=== PATIENT | male | born 1950 | race Caucasian/White ===

== ENCOUNTER 2025-04-19 02:09 | Emergency (ER) | payer MEDICARE, OTHER, SELFPAY ==
[2025-04-19 02:10] VITALS: BP 141/73
[2025-04-19 02:20] VITALS: BMI 20.1
--- NOTE | 2025-04-19 02:27 | ED.GENMED ---
History of Present Illness
General
Chief Complaint: Catheter/Tube Problem
Source: patient and records
Exam Limitations: dementia
Time Seen by Provider: 04/19/25 02:17
History of Present Illness
History of Present Illness:
This patient is a 74-year-old male who reportedly pulled his Marcial catheter out prompting his visit here. We attempted to call his facility for further information, unable to reach them after several attempts. History limited given patient's
history of dementia.
Past History
Past History
ED Past Medical History: CAD, GERD, HTN, Hypercholesterolemia and NIDDM
Social History
Tobacco: Other (uanble to assess )
Alcohol: Other (unable to assess given dementia)
Phy Exam
Physical Exam
Physical Exam:
GENERAL: Alert , in no apparent distress
EYE: pupils equal and reactive
NECK: Supple, no significant adenopathy.
ENT: o/p clr, mmm.
CARDIAC: Regular rate and rhythm .
LUNGS: Clear breath sounds bilaterally, no acute respiratory distress, no wheezes/rales/rhonchi
ABDOMEN: Soft, without focal tenderness, no r/g
NEUROLOGICAL: pleasant, confused, speech clear, maee
SKIN: Warm and dry, skin intact.
MUSCULOSKELETAL: No edema, well perfused.
PSYCH: Normal and appropriate interaction.
: nl ext genitale exam, no bleeding or swelling
Course
Vital Signs
Initial and Last Documented VS:
Initial Vital Signs
Temp Pulse Resp BP Pulse Ox
98.4 F 70 16 141/73 100
04/19/25 02:10 04/19/25 02:10 04/19/25 02:10 04/19/25 02:10 04/19/25 02:10
Last Documented Vital Signs
Temp Pulse Resp BP Pulse Ox
98.4 F 66 17 126/73 99
04/19/25 02:10 04/19/25 04:05 04/19/25 04:05 04/19/25 04:00 04/19/25 04:01
*Pulse Oximetry
SaO2: 100
Oxygen Mode of Delivery: Room air
Patient hypoxic: no
*Critical Care Note
Total Time (30-74mins, 75-104mins- exclusive of procedures): Not Applicable
Update Note
Update Note:
Patient presents to the Emergency Department with reported removed Foley
Number and Complexity of Problems Addressed at the Encounter
� Chronic conditions affecting care:
� Acute Exacerbation and/or Progression of Chronic Illness:
� Differential Diagnosis includes:but not limited to urinary retention, urethral trauma, etc.
Amount and/or Complexity of Data to be Reviewed and Analyzed
� I performed an independent evaluation of and my interpretation is:
EKG:
CT:
Xrays:
Laboratory Studies:
Other:
� Review of other/old records reveals:
� Clinical information was obtained by an independent historian:
� Prescriptions/Medications Considered but not given:
� Further testing considered but not performed:
Risk of Complications and/or Morbidity or Mortality of Patient Management
� Social determinants of health affecting care:
� Discussion with other providers (PCP, Hospitalists, Consultants, etc):
� Escalation of care including admission/observation vs risk of discharge considered: Marcial catheter placed by RN without difficulty, return of yellow urine, patient comfortable. Will be transported back to his living facility.
ED Attending Note
-
Portions of this chart may have been created with voice recognition software.� Occasional wrong word or��sound alike� substitutions may have occurred due to the inherent limitations of voice recognition software.
Discharge Plan
Departure
Patient Disposition: [facility]/SNF
Date of Disposition: 04/19/25
Time of Disposition: 03:31
Discharge Problem:
Encounter for Marcial catheter replacement
Instructions: How to Care for Your Marcial Catheter, Male, BLOOD PRESSURE
Prescriptions:
No Action
carvedilol 6.25 MG tablet
6.25 mg PO BID
aspirin 81 MG tablet,chewable
81 mg PO DAILY Qty: 1 0RF
coenzyme Q10 [Co Q-10] 200 MG capsule
200 mg PO DAILY
donepezil 5 mg Tablet
5 mg PO DAILY
melatonin 3 mg Tablet
3 mg PO HS
tamsulosin 0.4 mg Capsule
0.4 mg PO QPM
buspirone 10 mg Tablet
10 mg PO BID
hydroxyzine HCl 25 mg Tablet
25 mg PO Q6H PRN (Reason: anxiety)
pravastatin 20 mg Tablet
20 mg PO DAILY
finasteride 5 mg Tablet
5 mg PO DAILY
alum-mag hydroxide-simeth [Mi-Acid] 400-400-40 mg/5 mL Suspension
30 ml PO Q6H PRN (Reason: indigestion)
insulin lispro [Humalog KwikPen Insulin] 100 unit/mL Insulin Pen
6 unit SC TID
insulin glargine [Lantus Solostar U-100 Insulin] 100 unit/mL (3 mL) Insulin Pen
20 unit SC HS
Therems-M
1 tab PO DAILY
acetaminophen 325 MG tablet
650 mg PO Q6HPRN PRN (Reason: pain/fever/headache)
Referrals:
Michael Betancourt MD [Family Provider, Family Practice]
Activity Restrictions/Additional Instructions:
IF YOU DEVELOP BLEEDING, FEVER, PAIN, OR OTHER WORRISOME SIGNS, PLEASE RETURN TO THE ER IMMEDIATELY!
Interventions
Interventions:
*Risk Screen - Suicide Last Done: 04/19/25 02:10
*General Assessment Last Done: 04/19/25 02:10
*Neglect/Abuse Screening Last Done: 04/19/25 02:10
*ED- Fall Risk Assessment Last Done: 04/19/25 02:27
*ED COVID-19 Vaccine History Last Done: 04/19/25 02:27
*ED Influenza Vaccine History Last Done: 04/19/25 02:27
*Nursing Disposition Last Done: 04/19/25 04:01
VS-Dzzhik-Nheswxromx Assessment Last Done: 04/19/25 03:16
ED-Male Genitourinary Assessment Last Done: 04/19/25 03:16
Discharge Date and Time
Discharge Date/Time: 04/19/25 04:22
Print Language: NIGERIEN
[2025-04-19 03:00] VITALS: BP 129/78
[2025-04-19 04:00] VITALS: BP 126/73
== END 2025-04-19 04:22 ==
LOC: EMR 02:09
PROVIDERS: EMERGENCY PHYSICIAN Emergency Medicine; FAMILY PHYSICIAN Family Medicine
DX: Z46.6 Encounter for fitting and adjustment of urinary device (principal); E11.9 Type 2 diabetes mellitus without complications; E78.00 Pure hypercholesterolemia, unspecified; F03.90 Unspecified dementia, unspecified severity, without behavioral disturbance, psychotic disturbance, mood disturbance, and anxiety; I10 Essential (primary) hypertension; I25.10 Atherosclerotic heart disease of native coronary artery without angina pectoris
CPT/HCPCS: 51702; 99283

== ENCOUNTER 2025-04-20 00:56 | Emergency (ER) | payer MEDICARE, OTHER, SELFPAY ==
[2025-04-20 00:58] VITALS: BP 125/71
--- NOTE | 2025-04-20 01:13 | ED.GENMED ---
History of Present Illness
General
Chief Complaint: Catheter/Tube Problem
Time Seen by Provider: 04/20/25 01:03
History of Present Illness
History of Present Illness:
74-year-old male with history of dementia returns to the emergency department due to a Marcial catheter issue. He was seen here last night due to Marcial catheter removal, Marcial was replaced without issue. Apparently nursing staff could not find his
drainage bag and thus called EMS to take him to the hospital. On arrival to EMS there was apparently urine soaking the patient's room. He has no organic complaints
Past History
Past History
ED Past Medical History: CAD, GERD, HTN, Hypercholesterolemia and NIDDM
Social History
Tobacco: Other (uanble to assess )
Alcohol: Other (unable to assess given dementia)
Review of Systems
Review of Systems
Allergies reviewed?: Yes
All Other Systems: ROS reviewed and negative except as documented in HPI and ROS
Phy Exam
Physical Exam
Physical Exam:
GEN: Well appearing, NAD, WDWN
HEENT: Oral mucosa moist, no scleral icterus
Cardiac: Regular rate
Lung: No respiratory distress, no tachypnea
: Marcial catheter well-seated, no blood at the urethral meatus
MSK: No gross deformity or injuries
Skin: Good color, no pallor or jaundice, no rashes
Neuro: Alert, baseline mentation, moves all extremities freely
Psych: Calm, cooperative
Course
Vital Signs
Initial and Last Documented VS:
Initial Vital Signs
Temp Pulse Resp BP Pulse Ox
97.6 F 68 16 125/71 100
04/20/25 00:58 04/20/25 00:58 04/20/25 00:58 04/20/25 00:58 04/20/25 00:58
Last Documented Vital Signs
Temp Pulse Resp BP Pulse Ox
97.6 F 68 16 125/71 100
04/20/25 00:58 04/20/25 00:58 04/20/25 00:58 04/20/25 00:58 04/20/25 01:14
MDM/Problems Addressed
MDM/Problems Addressed:
Drainage bag replaced
*Pulse Oximetry
SaO2: 100
Oxygen Mode of Delivery: Room air
Patient hypoxic: no
*Critical Care Note
Total Time (30-74mins, 75-104mins- exclusive of procedures): Not Applicable
ED Attending Note
-
Portions of this chart may have been created with voice recognition software.� Occasional wrong word or��sound alike� substitutions may have occurred due to the inherent limitations of voice recognition software.
Discharge Plan
Departure
Patient Disposition: Home (Routine Discharge)
Date of Disposition: 04/20/25
Time of Disposition: 01:14
Patient with high blood pressure during this ER visit?: No
Discharge Problem:
Malfunction of Marcial catheter
Prescriptions:
No Action
carvedilol 6.25 MG tablet
6.25 mg PO BID
aspirin 81 MG tablet,chewable
81 mg PO DAILY Qty: 1 0RF
coenzyme Q10 [Co Q-10] 200 MG capsule
200 mg PO DAILY
donepezil 5 mg Tablet
5 mg PO DAILY
melatonin 3 mg Tablet
3 mg PO HS
tamsulosin 0.4 mg Capsule
0.4 mg PO QPM
buspirone 10 mg Tablet
10 mg PO BID
hydroxyzine HCl 25 mg Tablet
25 mg PO Q6H PRN (Reason: anxiety)
pravastatin 20 mg Tablet
20 mg PO DAILY
finasteride 5 mg Tablet
5 mg PO DAILY
alum-mag hydroxide-simeth [Mi-Acid] 400-400-40 mg/5 mL Suspension
30 ml PO Q6H PRN (Reason: indigestion)
insulin lispro [Humalog KwikPen Insulin] 100 unit/mL Insulin Pen
6 unit SC TID
insulin glargine [Lantus Solostar U-100 Insulin] 100 unit/mL (3 mL) Insulin Pen
20 unit SC HS
Therems-M
1 tab PO DAILY
acetaminophen 325 MG tablet
650 mg PO Q6HPRN PRN (Reason: pain/fever/headache)
Interventions
Interventions:
*Risk Screen - Suicide Last Done: 04/20/25 01:03
*General Assessment Last Done: 04/20/25 01:03
*Neglect/Abuse Screening Last Done: 04/20/25 01:03
*ED- Fall Risk Assessment Last Done: 04/20/25 01:03
*ED COVID-19 Vaccine History Last Done: 04/20/25 01:03
*ED Influenza Vaccine History Last Done: 04/20/25 01:03
XK-Tsyovn-Ddncahmyvy Assessment Last Done: 04/20/25 01:07
ED-Male Genitourinary Assessment Last Done: 04/20/25 01:07
Discharge Date and Time
Print Language: [place]ET[place]
[2025-04-20 03:01] VITALS: BP 95/60
== END 2025-04-20 03:29 | disposition home or self-care (01) ==
LOC: EMR 00:56
PROVIDERS: EMERGENCY PHYSICIAN Student in an Organized Health Care Education/Training Program
DX: T83.091A Other mechanical complication of indwelling urethral catheter, initial encounter (principal); Y84.6 Urinary catheterization as the cause of abnormal reaction of the patient, or of later complication, without mention of misadventure at the time of the procedure; E78.00 Pure hypercholesterolemia, unspecified; I10 Essential (primary) hypertension; E11.9 Type 2 diabetes mellitus without complications; I25.10 Atherosclerotic heart disease of native coronary artery without angina pectoris; F03.90 Unspecified dementia, unspecified severity, without behavioral disturbance, psychotic disturbance, mood disturbance, and anxiety
CPT/HCPCS: 99282

== ENCOUNTER 2025-05-16 12:23 | Inpatient (IN) | payer MEDICARE, OTHER, SELFPAY ==
[2025-05-16] VITALS (49 sets, daily range): BP systolic 66–123; BP diastolic 36–80; BMI 21.5
--- NOTE | 2025-05-16 08:50 | ED.GENMED ---
History of Present Illness
<ORALIA Connor - Last Filed: 05/16/25 14:28>
General
Chief Complaint: Blood Pressure Problem
Source: ambulance crew
Exam Limitations: dementia
Time Seen by Provider: 05/16/25 08:46
Nursing documentation reviewed up to this point in time: agreed with
History of Present Illness
History of Present Illness:
Patient is a 74-year-old male with PMH of dementia , CAD, htn, hyperlipidemia , [place] NSTEMI from [facility] sent for evaluation. Patient was noted to have hematuria in his Moore catheter. He has a history of dementia unable to give history. Medics
report patient's blood pressure was 80s over 50s.
Nurse from [facility] reports around 5: 30 am pt was noted to be lethargic, low BP 88/49 and blood in his moore bag.
Nurse reports pt normally walks on his own and would not get up out of bed this am.
Sister at bedside reports patient has a Moore because of urinary retention. Pt is followed by Urology here and is scheduled for a 'scraping of his prostate June 05.'
Past History
<ORALIA Connor - Last Filed: 05/16/25 14:28>
Past History
ED Past Medical History: CAD, GERD, HTN, Hypercholesterolemia and NIDDM
Social History
Tobacco: Other (uanble to assess )
Alcohol: Other (unable to assess given dementia)
Phy Exam
<ORALIA Connor - Last Filed: 05/16/25 14:28>
General Physical Exam
General Presentation: no apparent distress
General age: appears stated age
General Skin: warm and dry
General Habitus: elderly
General Mental: confused
General Hydration: dry mucous membranes
Cardiovascular Exam
Cardiovascular Exam: regular rate/rhythm, no murmur and normal peripheral pulses
Pulmonary Exam
Pulmonary Exam: lungs clear and no respiratory distress
Genitourinary Exam Male
Exam Male: other (moore catheter in place with gross hematuria no clots )
Neurological Exam
Neurological Exam: other (sleepy)
Musculoskeletal Exam
Musculoskeletal Exam: full ROM
Skin Exam
Skin Exam: normal color and warm/dry
Sepsis
<ORALIA Connor - Last Filed: 05/16/25 14:28>
Sepsis Screening
Sepsis Assessment: Sepsis
Sepsis Screen
Sepsis Screen: Sepsis
Date: 05/16/25
Time: 14:28
Course
<ORALIA Connor - Last Filed: 05/16/25 14:28>
Orders/Labs/Results
Orders:
Orders
05/16/25 Breakfast
NPO
Allow oral meds: Yes
Allow clear liquids: Sips of Clears
05/16/25 08:57
Electrocardiogram (*1) Urgent
Reason for Study: Other
Other Reason for Exam: sepsis
Cardiac Monitoring- Treatment ONCE
EKG- Treatment ONCE
IV Insert/Care/Rem.- Treatment PRN
05/16/25 09:00
COVID-19 Antigen Urgent
Source: Nasal Swab
Complete Blood Count/With Diff Urgent
Comprehensive Metabolic Panel Urgent
Lactic Acid Q4H
Comment: CANCEL 2nd LACTIC ACID IF 1st LACTIC ACID IS LESS THAN 2
Manual Differential Urgent
Blood Culture Q30M
TEREZA Source: Blood/Venous
Specimen Description:
Influenza A+B Rapid Molecular Urgent
TEREZA Source: Nasal Swab
Specimen Description:
05/16/25 09:01
0.9% Sodium Chloride 1000 ml [Nss] 2,000 ml IV NOW STA
Acetaminophen [Tylenol/Feverall] 650 mg RECTAL NOW STA
05/16/25 09:10
Chest X-ray Portable [CR Chest Portable - 1 View] Stat
Comment:
Reason For Exam: chest pain
Reason Study Needs to be Portable: Unable to Transport
05/16/25 09:12
Blood Culture Q30M
TEREZA Source: Blood/Venous
Specimen Description:
05/16/25 09:26
Moore Placement- Treatment ONCE
Reason for insertion: Chronic Moore on Admit
05/16/25 09:54
Urinalysis Reflex To Culture Urgent
Date Specimen was Collected: 05/16/25
Time Specimen was Collected: 09:53
Comment: from [facility] moore
Urine Microscopic Reflex Cult Urgent
Urine Culture Urgent
TEREZA Source: U
Specimen Description:
Date Specimen was Collected: 05/16/25
Time Specimen was Collected: 09:53
05/16/25 09:57
0.9% Sodium Chloride 500 ml [Nss] 500 ml IV BOLUS
Piperacillin/Tazo 3.375 Gram [Zosyn] 3.375 gram in 50 ml IV NOW
05/16/25 10:00
NORepinephrine 4 MG/250 ML [Levophed] 4 mg in 250 ml IV PER PROTOCOL
Initial dose in mcg/min, then titrate:: 5
Titrate to keep:: MAP > 65 mmHg
Titrate by mcg/min:: 1-2 mcg/min
Frequency of titrations (minutes):: 5
Maximum dose in ICU in mcg/min:: 30
Maximum dose in IMU in mcg/min:: 8
Maximum dose in IVU in mcg/min:: 4
Begin to taper infusion when:: Remained at goal for 4hrs
Taper by mcg/min:: 1-2 mcg/min
Frequency of taper (minutes) if patient maintains goal:: 30
Taper to off?: Yes
If infusion off & no longer maintaining goal:: Contact Provider
05/16/25 10:01
Dextrose 50%-Water [Dextrose 50% Syringe] 25 grams IV NOW STA
05/16/25 10:02
Dextrose 50%-Water [Dextrose 50% Syringe] 25 grams .ROUTE .STK-MED ONE
05/16/25 11:00
Dextrose 5%/0.9%Sodchl 500 ml [D5/0.9% Sodium Chloride] 500 ml IV 125 mls/hr
05/16/25 12:08
Admit/Transfer Patient As Directed
Co-Sign Provider:
Level of Care: Inpatient admission
Assign to:: ICU
Physician / Group: sugeya/medicine
Diagnosis: septic shock
Reason for Hospitalization: septic shock
Expected length of stay greater than two midnights?: Yes
ELOS- Estimated Length of Stay in days: 4
I certify the patient meets the requirements for IP care: Yes
PRN Pain Medication Management As Directed
May give lesser potent ordered pain med per pt: Yes
preference::
Protocol:: Medication orders for pain may be administered in a
manner that supports deferring to patient preference
when the pt is:
- Requesting an ordered lesser potent pain medication.
Least to most potent pain medications are defined
as: acetaminophen < NSAID < tramadol < opioids
(morphine, oxycodone, hydromorphone).
- Requesting a lesser dose of the same medication IF
ORDERED.
- Requesting a less intrusive route of administration
if both routes are prescribed by the provider (PO <
IV).
05/16/25 12:09
Code Status As Directed
Resuscitation Status: Full Code
05/16/25 13:00
Lactic Acid Q4H
Comment: CANCEL 2nd LACTIC ACID IF 1st LACTIC ACID IS LESS THAN 2
05/16/25 13:29
Dextrose 5%/Lactringers 1000ML [D5lr] 1,000 ml IV 75 mls/hr
05/16/25 14:25
Lactic Acid Q4H
Comment: repeat q4 hours x 4 or until less than 2 mmol/L
Lactated Ringers [Lr] 1,000 ml IV BOLUS
Piperacillin/Tazo 4.5 Gram [Zosyn] 4.5 gram in 100 ml IV Q6H
05/16/25 14:25
Anesthesiology Fellow Consult Routine
Consulting Provider: Cristian Cooper
Was physician already notified: Yes
Vancomycin MRSA PCR Screen Urgent
TEREZA Source: Nose
Specimen Description:
Activity As Directed
Activity Level: As Tolerated
Intake/ Output As Directed
Frequency: Per unit guidelines
Vital Signs As Directed
Frequency: Per unit guidelines
Renal & Bladder US [US Renal With Bladder] Routine
Comment:
Reason For Exam: radu, hematuria
DX Deep Vein Thrombosis Video Routine
05/16/25 16:00
Heparin 5,000 units SC Q8
05/16/25 18:25
Lactic Acid Q4H
Comment: repeat q4 hours x 4 or until less than 2 mmol/L
05/16/25 22:25
Lactic Acid Q4H
Comment: repeat q4 hours x 4 or until less than 2 mmol/L
05/17/25 06:00
Complete Blood Count/No Diff IN AM
Comprehensive Metabolic Panel IN AM
05/17/25 08:00
Aspirin Chewable [Low Strength Aspirin] 81 mg PO DAILY
05/18/25 06:00
Complete Blood Count/No Diff IN AM
Comprehensive Metabolic Panel IN AM
05/19/25 06:00
Complete Blood Count/No Diff IN AM
Comprehensive Metabolic Panel IN AM
Abnormal Lab Results
05/16/25 05/16/25 05/16/25
09:00 09:54 10:00
WBC 24.3 H 10^3/uL
(4.8-10.8)
RBC 3.47 L 10^6/uL
(4.70-6.10)
Hgb 10.1 L g/dL
(13.0-18.0)
Hct 31.2 L %
(39.0-52.0)
MCHC 32.4 L g/dL
(33.0-37.0)
Abs Neuts (Manual) 23.0 H 10^3/uL
(1.4-6.5)
Segmented Neutrophils 84 H %
(42-75)
Band Neutrophils 11 H %
(0-3)
Lymphocytes (Manual) 2 L %
(20-51)
BUN 46 H mg/dl
(9-20)
Creatinine 2.1 H mg/dL
(0.7-1.3)
Glucose 65 L mg/dl
(70-99)
Total Protein 5.9 L g/dl
(6.3-8.2)
Albumin 3.1 L g/dl
(3.5-5.0)
Ur Occult Blood Reflex 4+ A
(Negative)
Leukocyte Esterase Rfl 3+ A
(Negative)
Urine RBC >100 A /HPF
(0-2)
Urine WBC (Reflex) >100 A /HPF
(0-5)
Urine Bacteria (Reflex) Moderate A
(Negative)
Urine Albumin (Reflex) 3+ A
(Neg - Trace)
POC Glucose 41 L* mg/dl
(70-99)
05/16/25 05/16/25
10:21 11:04
WBC
RBC
Hgb
Hct
MCHC
Abs Neuts (Manual)
Segmented Neutrophils
Band Neutrophils
Lymphocytes (Manual)
BUN
Creatinine
Glucose
Total Protein
Albumin
Ur Occult Blood Reflex
Leukocyte Esterase Rfl
Urine RBC
Urine WBC (Reflex)
Urine Bacteria (Reflex)
Urine Albumin (Reflex)
POC Glucose 138 H mg/dl 139 H mg/dl
(70-99) (70-99)
05/16/25 09:00
05/16/25 09:00
Vital Signs
Initial and Last Documented VS:
Initial Vital Signs
Temp Pulse Resp BP Pulse Ox
102 F H 91 23 101/50 91
05/16/25 08:46 05/16/25 08:46 05/16/25 08:46 05/16/25 08:46 05/16/25 08:46
Last Documented Vital Signs
Temp Pulse Resp BP Pulse Ox
98.8 F 53 13 113/64 97
05/16/25 13:53 05/16/25 13:53 05/16/25 13:53 05/16/25 13:53 05/16/25 13:53
Hot Pipe Gauger consulted with Physician
Hot Pipe Gauger consulted with physician?: Yes
Name of Physician Consulted: Erwin
<Kristian Hood MD - Last Filed: 05/16/25 10:48>
Orders/Labs/Results
Orders:
Orders
05/16/25 Breakfast
NPO
Allow oral meds: Yes
Allow clear liquids: Sips of Clears
05/16/25 08:57
Electrocardiogram (*1) Urgent
Reason for Study: Other
Other Reason for Exam: sepsis
Cardiac Monitoring- Treatment ONCE
EKG- Treatment ONCE
IV Insert/Care/Rem.- Treatment PRN
05/16/25 09:00
COVID-19 Antigen Urgent
Source: Nasal Swab
Complete Blood Count/With Diff Urgent
Comprehensive Metabolic Panel Urgent
Lactic Acid Q4H
Comment: CANCEL 2nd LACTIC ACID IF 1st LACTIC ACID IS LESS THAN 2
Manual Differential Urgent
Blood Culture Q30M
TEREZA Source: Blood/Venous
Specimen Description:
Influenza A+B Rapid Molecular Urgent
TEREZA Source: Nasal Swab
Specimen Description:
05/16/25 09:01
0.9% Sodium Chloride 1000 ml [Nss] 2,000 ml IV NOW STA
Acetaminophen [Tylenol/Feverall] 650 mg RECTAL NOW STA
05/16/25 09:10
Chest X-ray Portable [CR Chest Portable - 1 View] Stat
Comment:
Reason For Exam: chest pain
Reason Study Needs to be Portable: Unable to Transport
05/16/25 09:12
Blood Culture Q30M
TEREZA Source: Blood/Venous
Specimen Description:
05/16/25 09:26
Moore Placement- Treatment ONCE
Reason for insertion: Chronic Moore on Admit
05/16/25 09:54
Urinalysis Reflex To Culture Urgent
Date Specimen was Collected: 05/16/25
Time Specimen was Collected: 09:53
Comment: from [facility] moore
Urine Microscopic Reflex Cult Urgent
Urine Culture Urgent
TEREZA Source: U
Specimen Description:
Date Specimen was Collected: 05/16/25
Time Specimen was Collected: 09:53
05/16/25 09:57
0.9% Sodium Chloride 500 ml [Nss] 500 ml IV BOLUS
Piperacillin/Tazo 3.375 Gram [Zosyn] 3.375 gram in 50 ml IV NOW
05/16/25 10:00
NORepinephrine 4 MG/250 ML [Levophed] 4 mg in 250 ml IV PER PROTOCOL
Initial dose in mcg/min, then titrate:: 5
Titrate to keep:: MAP > 65 mmHg
Titrate by mcg/min:: 1-2 mcg/min
Frequency of titrations (minutes):: 5
Maximum dose in ICU in mcg/min:: 30
Maximum dose in IMU in mcg/min:: 8
Maximum dose in IVU in mcg/min:: 4
Begin to taper infusion when:: Remained at goal for 4hrs
Taper by mcg/min:: 1-2 mcg/min
Frequency of taper (minutes) if patient maintains goal:: 30
Taper to off?: Yes
If infusion off & no longer maintaining goal:: Contact Provider
05/16/25 10:01
Dextrose 50%-Water [Dextrose 50% Syringe] 25 grams IV NOW STA
05/16/25 10:02
Dextrose 50%-Water [Dextrose 50% Syringe] 25 grams .ROUTE .STK-MED ONE
05/16/25 11:00
Dextrose 5%/0.9%Sodchl 500 ml [D5/0.9% Sodium Chloride] 500 ml IV 125 mls/hr
05/16/25 12:08
Admit/Transfer Patient As Directed
Co-Sign Provider:
Level of Care: Inpatient admission
Assign to:: ICU
Physician / Group: pasricha/medicine
Diagnosis: septic shock
Reason for Hospitalization: septic shock
Expected length of stay greater than two midnights?: Yes
ELOS- Estimated Length of Stay in days: 4
I certify the patient meets the requirements for IP care: Yes
PRN Pain Medication Management As Directed
May give lesser potent ordered pain med per pt: Yes
preference::
Protocol:: Medication orders for pain may be administered in a
manner that supports deferring to patient preference
when the pt is:
- Requesting an ordered lesser potent pain medication.
Least to most potent pain medications are defined
as: acetaminophen < NSAID < tramadol < opioids
(morphine, oxycodone, hydromorphone).
- Requesting a lesser dose of the same medication IF
ORDERED.
- Requesting a less intrusive route of administration
if both routes are prescribed by the provider (PO <
IV).
05/16/25 12:09
Code Status As Directed
Resuscitation Status: Full Code
05/16/25 13:00
Lactic Acid Q4H
Comment: CANCEL 2nd LACTIC ACID IF 1st LACTIC ACID IS LESS THAN 2
05/16/25 13:29
Dextrose 5%/Lactringers 1000ML [D5lr] 1,000 ml IV 75 mls/hr
05/16/25 14:25
Lactic Acid Q4H
Comment: repeat q4 hours x 4 or until less than 2 mmol/L
Lactated Ringers [Lr] 1,000 ml IV BOLUS
Piperacillin/Tazo 4.5 Gram [Zosyn] 4.5 gram in 100 ml IV Q6H
05/16/25 14:25
Anesthesiology Fellow Consult Routine
Consulting Provider: Cristian Cooper
Was physician already notified: Yes
Vancomycin MRSA PCR Screen Urgent
TEREZA Source: Nose
Specimen Description:
Activity As Directed
Activity Level: As Tolerated
Intake/ Output As Directed
Frequency: Per unit guidelines
Vital Signs As Directed
Frequency: Per unit guidelines
Renal & Bladder US [US Renal With Bladder] Routine
Comment:
Reason For Exam: radu, hematuria
DX Deep Vein Thrombosis Video Routine
05/16/25 16:00
Heparin 5,000 units SC Q8
05/16/25 18:25
Lactic Acid Q4H
Comment: repeat q4 hours x 4 or until less than 2 mmol/L
05/16/25 22:25
Lactic Acid Q4H
Comment: repeat q4 hours x 4 or until less than 2 mmol/L
05/17/25 06:00
Complete Blood Count/No Diff IN AM
Comprehensive Metabolic Panel IN AM
05/17/25 08:00
Aspirin Chewable [Low Strength Aspirin] 81 mg PO DAILY
05/18/25 06:00
Complete Blood Count/No Diff IN AM
Comprehensive Metabolic Panel IN AM
05/19/25 06:00
Complete Blood Count/No Diff IN AM
Comprehensive Metabolic Panel IN AM
Abnormal Lab Results
05/16/25 05/16/25 05/16/25
09:00 09:54 10:00
WBC 24.3 H 10^3/uL
(4.8-10.8)
RBC 3.47 L 10^6/uL
(4.70-6.10)
Hgb 10.1 L g/dL
(13.0-18.0)
Hct 31.2 L %
(39.0-52.0)
MCHC 32.4 L g/dL
(33.0-37.0)
Abs Neuts (Manual) 23.0 H 10^3/uL
(1.4-6.5)
Segmented Neutrophils 84 H %
(42-75)
Band Neutrophils 11 H %
(0-3)
Lymphocytes (Manual) 2 L %
(20-51)
BUN 46 H mg/dl
(9-20)
Creatinine 2.1 H mg/dL
(0.7-1.3)
Glucose 65 L mg/dl
(70-99)
Total Protein 5.9 L g/dl
(6.3-8.2)
Albumin 3.1 L g/dl
(3.5-5.0)
Ur Occult Blood Reflex 4+ A
(Negative)
Leukocyte Esterase Rfl 3+ A
(Negative)
Urine RBC >100 A /HPF
(0-2)
Urine WBC (Reflex) >100 A /HPF
(0-5)
Urine Bacteria (Reflex) Moderate A
(Negative)
Urine Albumin (Reflex) 3+ A
(Neg - Trace)
POC Glucose 41 L* mg/dl
(70-99)
05/16/25 05/16/25
10:21 11:04
WBC
RBC
Hgb
Hct
MCHC
Abs Neuts (Manual)
Segmented Neutrophils
Band Neutrophils
Lymphocytes (Manual)
BUN
Creatinine
Glucose
Total Protein
Albumin
Ur Occult Blood Reflex
Leukocyte Esterase Rfl
Urine RBC
Urine WBC (Reflex)
Urine Bacteria (Reflex)
Urine Albumin (Reflex)
POC Glucose 138 H mg/dl 139 H mg/dl
(70-99) (70-99)
05/16/25 09:00
05/16/25 09:00
Vital Signs
Initial and Last Documented VS:
Initial Vital Signs
Temp Pulse Resp BP Pulse Ox
102 F H 91 23 101/50 91
05/16/25 08:46 05/16/25 08:46 05/16/25 08:46 05/16/25 08:46 05/16/25 08:46
Last Documented Vital Signs
Temp Pulse Resp BP Pulse Ox
98.8 F 53 13 113/64 97
05/16/25 13:53 05/16/25 13:53 05/16/25 13:53 05/16/25 13:53 05/16/25 13:53
<ORALIA Connor - Last Filed: 05/16/25 14:28>
MDM/Problems Addressed
Differential Diagnosis Includes:
Not limited to COVID, influenza, pneumonia, UTI, sepsis, dehydration, electrolyte abnormality
MDM/Problems Addressed:
Patient is a 74-year-old male with dementia from nursing facility. Patient was sent in for decreased mental status. Patient was lethargic this morning normally walks around and was not doing so. In addition he has a chronic Moore and is known to
pull out his Moore and nurses noted blood in his bag. He was also found to be hypertensive at the nursing facility. Patient presents confused which is baseline for patient. He presented hypotensive and febrile at 102. Patient was given rectal
Tylenol fluid bolus.
Case discussed with ED physician who evaluated patient bedside.
Patient's white count was found to be elevated at 24,000 with a normal lactic of 1.5
Patient's BUN/creatinine elevated at 46 and 2.1.
patient was given septic fluids but despite fluids blood pressure was as low as in the 60s. Levophed ordered. Patient sugar was also low in the 40s patient was given an amp of D50. After patient received 2 L of normal saline septic fluid bolus
patient was given 500 bag of D5 normal saline.
Urine is pending at this time however looks dirty.
COVID flu are negative chest x-ray negative
Chronic conditions affecting care:
Dementia ;chronic Moore
<ORALIA Connor - Last Filed: 05/16/25 14:28>
*Radiology
Radiology exam reviewed: radiology read reviewed
*Pulse Oximetry
SaO2: 91
Oxygen Mode of Delivery: Room air
Patient hypoxic: yes
*EKG
Interpreted by ED Provider?: Yes
Heart Rate: 85
Rate: normal
Rhythm: sinus
Ischemia: no ischemia
*Critical Care Note
Total Time (30-74mins, 75-104mins- exclusive of procedures): Not Applicable (See chart)
comment:
Critical care statement: A total of 40 minutes of critical care time was provided for this patient. This includes management of unstable vital signs, evaluation of the patient at bedside, reviewing the patient's pertinent medical records, discussion
with consultants, review of old EKGs and review of pertinent medical records. This time with separate from time utilized to perform the aforementioned documented procedures
ED Attending Note
<ORALIA Connor - Last Filed: 05/16/25 14:28>
-
Portions of this chart may have been created with voice recognition software.� Occasional wrong word or��sound alike� substitutions may have occurred due to the inherent limitations of voice recognition software.
<Kristian Hood MD - Last Filed: 05/16/25 10:48>
ED Attending Note
Patient seen and examined by attending physician: Yes
ED Attending Note:
Patient with history of dementia, with indwelling Moore catheter since 1 month ago due to urinary retention, presents to ED from care home secondary to mental status change, along with low blood pressure, noted by staff this morning. Upon
arrival, patient is found to be febrile. Patient is somnolent but arousable, and offers no complaints.
Physical Exam
General: mild distress, not acutely ill. febrile.
Head: nc/at. eomi
Neck: supple. no meningeal signs. normal range of motion
Heart: s1/s2 regular rate and rhythm
Lungs: no acute respiratory distress. clear bilaterally
Abdomen: normal bowel sounds. not tender. no distention
Neuro: alert and oriented x 3. no focal neurological deficits
Skin: no rash
Extremities: no edema. no calf tenderness.
Moore catheter bag with large amount of blood, without blood clots. With patient's underlying history and involuntary movements of his upper extremities, wondering whether or not bloody urine may be secondary to trauma that was caused
inadvertently. As such, Moore catheter will be replaced and urinalysis will be checked afterwards. Patient will require admission for further workup, especially in light of profound hypotension noted upon arrival with febrile state.
COVID, influenza, chest x-ray, and other studies pending.
Blood culture pending.
Hypoglycemia noted. Patient given 1 amp of D50 and started on D5 normal saline IV fluids afterwards. Repeat blood sugar stable.
Patient started on Levophed infusion secondary to persistent hypotension despite 2 L of IV fluid bolus.
History and exam concerning for severe sepsis, likely secondary to UTI. Patient will be admitted to ICU for further evaluation and treatment.
Critical care statement: A total of 40 minutes of critical care time was provided for this patient. This includes management of unstable vital signs, evaluation of the patient at bedside, reviewing the patient's pertinent medical records, review of
old EKGs and review of pertinent medical records. This time with separate from time utilized to perform the aforementioned documented procedures
Discharge Plan
Departure
Patient Disposition: Admit
Date of Disposition: 05/16/25
Time of Disposition: 10:52
Admit to: ICU
Admit to doctor: hospitaist
Presentation/result/management discussed w/ accepting MD/DO: Hospitalist
Patient with high blood pressure during this ER visit?: No
Condition: Fair
Covid-19: Not Applicable
Discharge Problem:
Fever, Sepsis, Acute UTI
Interventions
Interventions:
*General Assessment Last Done: 05/16/25 09:50
*Neglect/Abuse Screening Last Done: 05/16/25 09:50
*ED COVID-19 Vaccine History Last Done: 05/16/25 09:50
*ED Influenza Vaccine History Last Done: 05/16/25 09:50
[facility] Fall Risk Assessment Tool Last Done: 05/16/25 09:20
*Risk Screen - Suicide (C-SSRS) Last Done: 05/16/25 09:52
*Nursing Disposition Last Done: 05/16/25 13:53
ED- Cardiac Assessment Last Done: 05/16/25 09:20
ED- Neurological Assessment Last Done: 05/16/25 09:20
ED- Pulmonary Assessment Last Done: 05/16/25 09:20
Discharge Date and Time
Discharge Date/Time: 05/16/25 14:03
[2025-05-16] MEDS: NSS 2000 ML IV (09:26)
[2025-05-16] MEDS: TYLENOL/FEVERALL 650 MG RECTAL (09:28)
[2025-05-16 09:38] LABS: ALT (SGPT) 15 U/L (0-50); AST (SGOT) 26 U/L (17-59); Albumin 3.1 g/dl (3.5-5.0); Alkaline Phosphatase 58 U/L (38-126); Blood Urea Nitrogen 46 mg/dl (9-20); Calcium 8.5 mg/dl (8.4-10.2); Carbon Dioxide 24 mmol/L (22-30); Chloride 107 mmol/L (98-107); Estimated Creatinine Clearance 30 ml/min; Glucose 65 mg/dl (70-99); Potassium 3.7 mmol/L (3.5-5.1); Sodium 139 mmol/L (135-145); Total Protein 5.9 g/dl (6.3-8.2); eGFR 32.83
[2025-05-16 09:39] LABS: Hematocrit 31.2 % (39.0-52.0); Hemoglobin 10.1 g/dL (13.0-18.0); Mean Corp Hgb Conc. 32.4 g/dL (33.0-37.0); Mean Corpuscular Volume 89.9 fL (80.0-94.0); Platelet Count 263 10^3/uL (130-400); Red Cell Dist. Width 13.4 % (11.5-14.5)
[2025-05-16 09:56] LABS: COVID-19 Antigen Negative (Negative)
[2025-05-16 10:01] LABS: Glucose - Point of Care 41 mg/dl (70-99)
[2025-05-16] MEDS: DEXTROSE 50% SYRINGE 25 GRAMS IV (10:07)
[2025-05-16] MEDS: ZOSYN 50 IV ×3 (10:08→22:00)
[2025-05-16 10:09] LABS: Urine Character Slightly Cloudy (Clear)
[2025-05-16] MEDS: LEVOPHED 250 IV ×2 (10:17→18:05)
[2025-05-16 10:22] LABS: Glucose - Point of Care 138 mg/dl (70-99)
[2025-05-16] MEDS: D5/0.9% SODIUM CHLORIDE 500 IV (10:51)
[2025-05-16 10:54] LABS: Urine Red Blood Cell >100 /HPF (0-2); Urine White Cell >100 /HPF (0-5)
[2025-05-16 11:06] LABS: Glucose - Point of Care 139 mg/dl (70-99)
[2025-05-16 11:28] LABS: Absolute Neutrophils -Man Diff 23.0 10^3/uL (1.4-6.5); Normal RBC Morphology Yes; Platelets Checked Yes; Total Cells Counted 100
--- NOTE | 2025-05-16 12:08 | HPS.HSE ---
Addendum entered and electronically signed by Aamir Cade MD 05/16/25 15:50:
I saw and examined the patient.
The BEAD FLIPPER or PA's note was reviewed and I agree with the note.
Comment: Patient provide appropriate history due to mental status/acuity. Information obtained from ED and records. 74-year-old male with past medical history of hypertension, hyperlipidemia, CAD, GERD, BPH, HFrEF, type 2 diabetes and dementia
presents for hematuria and hypotension. Patient is at [facility]. Noted to have hematuria and hypotension this morning which prompted hospital visit. Patient had Marcial placed 1 month ago for urinary retention. Patient has continued to tug and
manipulate Marcial as per history indicates. Systolics noted in the 80s as per facility. Patient's normal baseline is walking independently. Unfortunate was unable to get out of bed this morning. Was evaluation of hematuria, Marcial was exchanged
with frothy urine seen. Urine cultures were drawn, antibiotics, fluids and vasopressors were initiated. Patient on 10 mcg/min of norepinephrine upon initial examination. Patient lethargic, bradycardic in the 40s, blood pressure 107/60 on
norepinephrine. Noted to have temperature 103.3 in the emergency room. Urine is clearing, now clear yellow. White count 24.3, creatinine 2.1, no recent records. UA positive. X-ray unremarkable. Also noted to be hypoglycemic.
Plan�admit to ICU. High suspicion of urinary infection causing septic shock. Wean norepinephrine as tolerated, MAP goal greater than 65; continue IV fluids judiciously, IVF as needed. Antibiotics, Zosyn. Follow-up MRSA PCR. Renal ultrasound.
Hold on oral medication except for aspirin. Hold antihypertensives. Continue D5LR for hypoglycemia.
Total Critical Care Time 55 minutes. I was immediately available to the patient and staff. I personally examined, reviewed labs, diagnostic images/reports, interpretations, treatment plans, discussed patient care with other providers and family
or caregivers (if patient is unable to make decisions), entered orders as appropriate and documented the medical record.
Original Note:
Family Physician
-
Family Physician: Rocío Terrell, DO
Chief Complaint
-
hematuria and hypotension
History of Present Illness
Patient is a 74-year-old male with past medical history significant for hypertension, hyperlipidemia, CAD, GERD, BPH, HFrEF, type 2 diabetes and dementia who presented to [facility] ED for evaluation of hematuria and hypotension. Patient is poor
historian, HPI obtained from family and chart review. Patient sent for evaluation from [facility] with hypotension and hematuria this morning. Patient has chronic Marcial catheter in place for urinary retention. Staff at facility reported hypotension
with SBP in the 80s and patient normally walks independently and was unable to get out of bed this morning. Patients Marcial exchanged in ED, returning approximately 1 L of urine, initially had demturia to cloudy and now clear urine. Patient was
febrile upon arrival to ED.
Medical History
Past Medical History
Past Medical History: Reports Other
Additional Past Medical History:
hypertension
hyperlipidemia
CAD
GERD
BPH
HFrEF
type 2 diabetes
dementia
Past Surgical History: Reports Other
Additional Past Surgical History:
(2008) mod CAD, 2 overlapping LAD Stents
Aileen
b/l Vein Stripping
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
Colon Polyp removed, negative per pt.
L Inguinal Hernia Repair
(11/28/19) Percutaneous R TF TAVR /w 26 mm Odell Karla 3 (JBM/DB)
Social History
Unable to obtain full social history at this time due to: Dementia
Family History
Family History: Not pertinent
Allergies / Home Medications
Allergies reflects when Allergies were last updated in [facility].
Home Medications with original date entered in [facility]
Allergy/Medication List:
Allergies
Allergy/AdvReac Type Severity Reaction Status Date / Time
atorvastatin (From Lipitor) Allergy Unknown Verified 04/19/25 02:17
bee venom protein (honey bee) Allergy Unknown Verified 04/19/25 02:17
Home Medications
aspirin 81 mg chewable tablet 81 mg PO DAILY #1 tab 08/25/17
carvedilol 6.25 mg tablet 6.25 mg PO BID Blood pressure 08/25/17
coenzyme Q10 200 mg capsule (Co Q-10) 200 mg PO DAILY Supplement 10/15/19
acetaminophen 325 mg tablet 650 mg PO Q6HPRN PRN pain/fever/headache 04/19/25
aluminum-mag hydroxide-simethicone 400 mg-400 mg-40 mg/5 mL oral susp 30 ml PO Q6H PRN indigestion 04/19/25
buspirone 10 mg tablet 10 mg PO BID 04/19/25
donepezil 5 mg tablet 5 mg PO DAILY 04/19/25
finasteride 5 mg tablet 5 mg PO DAILY 04/19/25
hydroxyzine HCl 25 mg tablet 25 mg PO Q6H PRN anxiety 04/19/25
insulin glargine 100 unit/mL (3 mL) subcutaneous pen (Lantus Solostar U-100 Insulin) 20 unit SC HS 04/19/25
insulin lispro 100 unit/mL subcutaneous pen (Humalog KwikPen (U-100) Insulin) 6 unit SC TID 04/19/25
melatonin 3 mg tablet 3 mg PO HS 04/19/25
pravastatin 20 mg tablet 20 mg PO HS 04/19/25
tamsulosin 0.4 mg capsule 0.4 mg PO QPM 04/19/25
glipizide 5 mg tablet 5 mg PO DAILY 05/16/25
therapeutic multivitamin 1 tab PO DAILY 05/16/25
Review of Systems
-
Unable to obtain full review of systems at this time due to: Dementia
Physical Exam
Vital Signs
Vital Signs
Temp Pulse Resp BP Pulse Ox
98.8 F 65 9 107/57 97
05/16/25 10:12 05/16/25 11:45 05/16/25 11:15 05/16/25 11:45 05/16/25 11:45
Physical Exam
General: Well Developed, Well Nourished, No Apparent Distress and Comfortable
HEENT: NormoCephalic, PERRLA, Nose Appears Normal, Ears Appear Normal and Hearing Impaired; No Moist mucous membranes
Respiratory: Clear and Non Labored Respirations; No Wheezes, Rales or Rhonchi
Cardiac: S1/S2 and Regular Rhythm; No Peripheral Edema
GI: Soft, Non Tender, Non Distended and Normal Bowel Sounds
Genito-urinary: Bloody Urine and Marcial
Musculoskeletal: No Clubbing and No Cyanosis
Skin: Warm and IV/Catheter Site
Neuro: Other (lethargic )
Psych: Apparent Dementia
Laboratory Results
-
05/16/25 09:00
05/16/25 09:00
Laboratory Results
Lactic Acid 1.5 mmol/L (0.7-2.0) 05/16/25 09:00
Total Bilirubin 0.7 mg/dl (0.2-1.3) 05/16/25 09:00
AST 26 U/L (17-59) 05/16/25 09:00
ALT 15 U/L (0-50) 05/16/25 09:00
Alkaline Phosphatase 58 U/L (38-126) 05/16/25 09:00
Data Reviewed
-
Diagnostic Radiology: Report Reviewed by me (CXR: No acute cardiopulmonary process.)
Lab Data: Labs Reviewed by me (WBC 24.3, hgb 10.1, hct 31.2, BUN 46, Creat 2.1, est CrCl 30, eGFR 32.83 )
Impression/Plan
-
IMPRESSION/PLAN:
#septic shock likely 2/2 UTI
hematuria and hypotension this morning
Marcial exchanged in ED 05/16/2025
WBC 24.3, hgb 10.1, hct 31.2, BUN 46, Creat 2.1, est CrCl 30, eGFR 32.83
UA: indicative of UTI
Urine Cx: pending
Blood Cx: pending
Covid: negative
Influenza: negative
MRSA: pending
CXR: No acute cardiopulmonary process.
EKG: SINUS RHYTHM WITH 1ST DEGREE A-V BLOCK
LOW VOLTAGE QRS
CANNOT RULE OUT ANTERIOR INFARCT , AGE UNDETERMINED
- Admit to ICU
- Consult Dam Tender Assistant
- trend Lactic
- Levophed gtt for MAP >65mmHg
- check renal US
- IVF D5 LR 75cc/hr
- IV Zosyn
#hypertension
- hold carvedilol
#hyperlipidemia
- hold pravastatin
#CAD
s/p cardiac cath with stents
- continue aspirin
#BPH
- hold finasteride and tamsulosin
#HFrEF
- daily weights
- I & Os
#type 2 diabetes
- AccuCheck AC & HS
- SSI
- hold glipizide
- hold Lantus and Humalog
#dementia
- hold buspirone, donepezil, PRN hydroxyzine
#GERD
Code status: Full code
DVT prophylaxis: heparin sq
--- NOTE | 2025-05-16 12:52 | CM ---
Chart reviewed and attempted to talk with patient at bedside
He was sleeping and unable to talk
OB call to spouse Es [phone]
He lives in [facility]
Per his spouse, he just moved there recently
Needs assistance with all ADLs and ambulation
PCP Dr. Wolf at [facility]
Pharamcy at [facility]
hx of [facility]
no hx of SNF
DCP is to return back to [facility] at this time
is interested in looking for different options for his home.
Discussed community options and is interested in 'a place for mom' program
CM provided info on a place for mom to
Cm will continue to follow up for any dcp needs
--- NOTE | 2025-05-16 13:03 | CON.INTV ---
Consultation
Consultation Request
Date/Time Consultation Requested: 05/16/2025
Date/Time Consultation Performed: 05/16/2025
Performing Provider: Dr. Cooper
Reason for Consultation: Septic shock
Medical History
-
Chief Complaint: Fever, hypotension
History of Present Illness:
Mr. Hendrickson is a 74-year-old male with a past medical history of dementia, chronic Marcial, CAD s/p stents, HTN, HLD, NSTEMI, type 2 diabetes, L nephrectomy 1994, living at [facility] who was brought into the ED low BP, altered mentation and
hematuria. At baseline patient is able to ambulate on his own but only oriented to self. Staff at [facility] noticed patient was lethargic around 5:30 AM with low BP 88/49. On presentation to the ED patient has a chronic Marcial for urinary
retention, vital signs showed a temperature of 102, pulse 91, RR 23, BP 101/50, pulse ox 91. Labs were notable for WBC 24, lactic acid 1.5, BUN 46, CR 2.1 (last baseline at [facility] 1.0). Patient was given Tylenol, 2.5 L of fluid but still had low BPs
with SBP in the 60s, Levophed was started. EKG notable for first-degree AV block which was seen previously, sugars was also noted to be in the 40s and patient was given D50 amp. COVID flu negative. In the ED his Marcial was exchanged and returned
and 1 L fluid. Urinalysis indicative of UTI. Blood cultures pending, urine cultures pending, chest x-ray shows no cardiopulmonary process. Patient was also started on IV Zosyn. When I saw the patient blood pressures had improved to 121/64 on
Levophed 8, pulse in the 50s, satting 96% on 2 L and patient was responsive to voice commands able to move all extremities and able to tell me who he is. He reported no abdominal pain headaches chest pain shortness of breath although this was
limited by patient's acuity and mental status. He reported no fevers chills nausea vomiting although this was also limited by patient's acuity and mental status. Family was not present at bedside and I was unable to interview them.
Past Medical History
Past Medical History: CAD, CHF (HFrEF), HTN, Hypercholesterolemia, NIDDM, [place] (NSTEMI) and Other (Dementia)
Past Surgical History: Cardiac (FL s/p stent 2008, TAVR 2019), Cholecystectomy and Other (Bilateral vein stripping, left nephrectomy due to malignancy 1994, inguinal hernia repair, colon polypectomy)
Social History
Tobacco: Other (Unable to complete due to acuity)
Alcohol: Other (Unable to complete due to acuity)
Drug: Other (Unable to complete due to acuity)
Personal:
Living: Longterm
Family History
Family History: Reviewed & Not Pertinent
Allergies / Home Medications
Allergies
Allergy/AdvReac Type Severity Reaction Status Date / Time
atorvastatin (From Lipitor) Allergy Unknown Verified 04/19/25 02:17
bee venom protein (honey bee) Allergy Unknown Verified 04/19/25 02:17
Home Medications
�Medication �Instructions �Recorded �Confirmed �Last Taken �Type
aspirin 81 mg chewable tablet 81 mg PO DAILY #1 tab 08/25/17 05/16/25 11/27/19 08:00 Rx
carvedilol 6.25 mg tablet 6.25 mg PO BID Blood pressure 08/25/17 05/16/25 11/27/19 07:00 History
coenzyme Q10 200 mg capsule (Co 200 mg PO DAILY Supplement 10/15/19 05/16/25 11/27/19 08:00 History
Q-10)
acetaminophen 325 mg tablet 650 mg PO Q6HPRN PRN 04/19/25 05/16/25 Unknown History
pain/fever/headache
aluminum-mag hydroxide-simethicone 30 ml PO Q6H PRN indigestion 04/19/25 05/16/25 Unknown History
400 mg-400 mg-40 mg/5 mL oral susp
buspirone 10 mg tablet 10 mg PO BID 04/19/25 05/16/25 Unknown History
donepezil 5 mg tablet 5 mg PO DAILY 04/19/25 05/16/25 Unknown History
finasteride 5 mg tablet 5 mg PO DAILY 04/19/25 05/16/25 Unknown History
hydroxyzine HCl 25 mg tablet 25 mg PO Q6H PRN anxiety 04/19/25 05/16/25 Unknown History
insulin glargine 100 unit/mL (3 20 unit SC HS 04/19/25 05/16/25 Unknown History
mL) subcutaneous pen (Lantus
Solostar U-100 Insulin)
insulin lispro 100 unit/mL 6 unit SC TID 04/19/25 05/16/25 Unknown History
subcutaneous pen (Humalog KwikPen
(U-100) Insulin)
melatonin 3 mg tablet 3 mg PO HS 04/19/25 05/16/25 Unknown History
pravastatin 20 mg tablet 20 mg PO HS 04/19/25 05/16/25 Unknown History
tamsulosin 0.4 mg capsule 0.4 mg PO QPM 04/19/25 05/16/25 Unknown History
glipizide 5 mg tablet 5 mg PO DAILY 05/16/25 05/16/25 Unknown History
therapeutic multivitamin 1 tab PO DAILY 05/16/25 05/16/25 Unknown History
Review of Systems
-
Unable to Obtain full review of systems at this time due to: Dementia and Acuity
History Source: Patient
All other systems: Negative unless noted
Constitutional: Fever and Chills
EENT: No Symptoms
Respiratory: No Symptoms
Abdomen/GI: No Symptoms
: Difficulty Voiding and Bleeding
Musculoskeletal: No Symptoms
Skin: No Symptoms
Neuro: No Symptoms
Vitals / Labs / Diagnostic Testing
Vital Signs
Temp Pulse Resp BP Pulse Ox
98.8 F 61 13 116/66 98
05/16/25 10:12 05/16/25 12:30 05/16/25 12:30 05/16/25 12:30 05/16/25 12:30
Lab Data
05/16/25 09:00
05/16/25 09:00
Microbiology
05/16/25 09:00 Nasal Swab Influenza Types A & B (JOSUE) - Final
Negative for Influenza A & B, NAAT
Negative results must be combined with clinical observations
and patient history.
Nucleic Acid Amplification test (NAAT)performed on the
[employer] platform.
Diagnostic Testing:
Physical Exam
-
HEENT: Normocephalic and Anicteric
Cardiovascular: S1/S2 and Regular Rhythm
Respiratory: Clear and Non-Labored Respirations
GI: Soft, Non Distended, Flat, Non Tender and Normal Bowel Sounds
Neurology: Awake, Oriented (AAO x 1 at baseline) and No Motor Deficits
General: Fever
Assessment
-
Mr. Hendrickson is a 74-year-old male with a past medical history of dementia, chronic Marcial, CAD, HTN, HLD, NSTEMI, type [address] [facility] who was brought into the ED low BP, altered mentation, and hematuria. At baseline patient is
able to ambulate on his own but is oriented only to self.
#Neurologic
Pain: None
Analgesia: Tylenol as needed
Mentation: At baseline, AAO x 1
Activity: As tolerated
Encephalopathy due to septic shock/hypoglycemia
IVF
Antibiotics
Pressors
Dementia
at baseline oriented to self
Patient seems to be back at baseline
- Hold donepezil
#Cardiovascular
Maintain MAP> 65
Pressors: Levophed 8
QTc: 385
EKG 1st degree AV block
Hx CAD with NSTEMI s/p stents
Continue ASA
Hypertension
Patient presented in hypotension
Hold BP meds
Hold carvedilol
#Respiratory
Chest x-ray 05/16 with no cardiopulmonary process
O2 requirements: 1L
Home O2: None
Blood gas:
#Gastrointestinal
Diet: N.p.o.
Stooling regimen:
Tubes: None
Antiemetics:
GI PPx:
Hyperlipidemia
Hold statin
#Renal
Marcial: Chronic Marcial for urinary retention, patient known to pull on catheter, replaced in ED
Urine output: About 1L after exchange
IVF: S/p 2.5 L of fluid resuscitation now on D5LR 75ml/hr
Electrolytes: K>4 Mg>2
Na 139
K 3.7
Mag pending
Hx L nephrectomy in 1994
Chronic Marcial for urinary retention
Obstructive uropathy
Hematuria
Acute kidney injury
Baseline 1.0 per chart review
Markedly elevated BUN
Presented 2.1
Hematuria resolved after exchange, likely caused by patient pulling on catheter
1 L of urine returned after exchange
Hold finasteride
Hold tamsulosin
-IV fluids
-Continue to monitor
- Renal ultrasound pending
#Infectious
WBC 24
ABX: IV Zosyn
Microbiology: COVID-negative, flu negative
Antipyretics: Acetaminophen
Septic shock due to UTI
Shock resolving on pressors and fluids
UA with signs of UTI
Blood cultures pending
Urine cultures pending
- Continue IVF and pressors
- Continue IV antibiotics
#Hematologic
DVT PPx: Subcu heparin
Hemoglobin: 10
PT
INR
PTT
#Endocrine
Maintain euglycemia with goal BG 140�180
Hypoglycemia
diabetes type II
A1c 7.6 2020
Hypoglycemic on presentation due to sepsis
S/p dextrose last POCG 176
Home insulin 20 units Lantus, 6 units lispro 3 times daily
-Hold home insulin sliding
- Hold glipizide
#Psych
Anxiety
- Continue BuSpar
- Hold hydroxyzine
#Surgical
#Access
Central:
None
Peripheral:
Left hand 18-gauge
Right arm 18-gauge
CODE STATUS: Full code
[2025-05-16] MEDS: D5LR 1000 IV (13:41)
[2025-05-16] MEDS: LR 1000 IV ×2 (14:32→18:32)
[2025-05-16 14:33] LABS: Glucose - Point of Care 176 mg/dl (70-99)
--- NOTE | 2025-05-16 14:35 | PTCARENOTE ---
Received pt from ed with ivf, levo hanging as charted. Confused, lethargic, minimally interactive with little speech. Does not answer questions appropriately of follow commands, but does move all extremities. LAC site occluded and removed. CHG
bath completed. Admission completed. Pt intermittently pulling at tubing/IV/catheter. Mitt applied to L arm to hopefully prevent pulling IV. Bed alarm in place. Frequent checks. Otherwise see work list.
[2025-05-16 15:35] LABS: INR 1.41; PT 17.4 Sec (11.4-14.6)
[2025-05-16 15:36] LABS: APTT 32.1 Sec (23.4-35.0)
[2025-05-16 15:46] LABS: Magnesium 1.8 mg/dl (1.6-2.3)
[2025-05-16] MEDS: HEPARIN 5000 UNITS SC ×2 (15:49→23:12)
--- NOTE | 2025-05-16 17:11 | PTCARENOTE ---
Son Nelson Erazo called for update, reports he is POA. His number is [phone]. He was made aware that his name was not listed on the chart. He gave number for [facility] main number [phone]. Call was placed to them and message
was left for call back.
Son does not want Es who is girlfriend to be making medical decisions. Son does not want her to delay pt returning to [facility]. Ultimate plan is to have procedure at [facility] 'mercedes saeed' to be able to have catheter removed.
--- NOTE | 2025-05-16 17:11 | PTCARENOTE ---
Son Nelson Reed called for update, reports he is POA. His number is [phone]. He was made aware that his name was not listed on the chart. He gave number for [facility] main number [phone]. Call was placed to them and message was left
for call back.
Son does not want Es who is girlfriend to be making decisions. Son does not want her to delay pt returning to [facility]. Ultimate plan is to have procedure at [facility] 'dawit darlin' to be able to have catheter removed.
[2025-05-16] MEDS: NOVOLOG FLEXPEN-LOW RESISTANCE 2 UNITS SC (17:55)
[2025-05-16 18:05] LABS: Glucose - Point of Care 231 mg/dl (70-99)
--- NOTE | 2025-05-16 18:31 | PTCARENOTE ---
Baljeet Montaño aware that blood sugar elevated. Dextrose removed from IVF.
--- NOTE | 2025-05-16 19:27 | PTCARENOTE ---
Received fax from Derek Duval, Son is listed a primary contact. He was called back with update and events upon coming to the hospital. He was made aware of room and given phone number of the unit. He and his will be in tomorrow to visit.
--- NOTE | 2025-05-16 19:55 | PTCARENOTE ---
Handoff report received from off ging RN. Patient received in bed on Levophed at 4 mcg/min (15 ml/hr), and LR at 75 ml/hr. Patient is oriented to self. Follows some simple commands. Speech is mumbled, slow, and difficulty to understand at time.
Plans of care reviewed, but pt unable to learn and is forgetful. Sinus jw with 1st degree block on the monitor. HR 47. Breath sounds are cta but diminished. SpO2 at 95% on room air.
+ BS. Pt's with a moore catheter and some blood noted around penial gland. UOP is cloudy with sediment. Patient wiped and mouth care provided. Turned and repositioned. Bed alarm in use. Call bruno is within reach.
[2025-05-16 20:39] LABS: Glucose - Point of Care 283 mg/dl (70-99)
[2025-05-16] MEDS: LANTUS 0.1 UNITS SC (21:02)
[2025-05-16] MEDS: NOVOLOG FLEXPEN-MODERATE RESISTANCE 5 UNITS SC (23:45)
[2025-05-16 23:54] LABS: Glucose - Point of Care 293 mg/dl (70-99)
[2025-05-17] VITALS (29 sets, daily range): BP systolic 88–116; BP diastolic 55–77; BMI 20.5
--- NOTE | 2025-05-17 | PTCARENOTE ---
Patient reassessed. Continues to be confused. HR 60. Levophed titrated per protocol. Turns and repositioning continued. No further changes from the previous assessment.
[2025-05-17 03:11] LABS: Glucose - Point of Care 211 mg/dl (70-99)
[2025-05-17] MEDS: NOVOLOG FLEXPEN 3 UNITS SC (03:14)
[2025-05-17 03:52] LABS: Hematocrit 27.6 % (39.0-52.0); Hemoglobin 9.3 g/dL (13.0-18.0); Mean Corp Hgb Conc. 33.7 g/dL (33.0-37.0); Mean Corpuscular Volume 91.1 fL (80.0-94.0); Platelet Count 238 10^3/uL (130-400); Red Cell Dist. Width 13.6 % (11.5-14.5)
[2025-05-17 04:05] LABS: ALT (SGPT) 190 U/L (0-50); AST (SGOT) 234 U/L (17-59); Albumin 2.5 g/dl (3.5-5.0); Alkaline Phosphatase 188 U/L (38-126); Blood Urea Nitrogen 38 mg/dl (9-20); Calcium 7.8 mg/dl (8.4-10.2); Carbon Dioxide 24 mmol/L (22-30); Chloride 108 mmol/L (98-107); Estimated Creatinine Clearance 41 ml/min; Glucose 201 mg/dl (70-99); Magnesium 2.0 mg/dl (1.6-2.3); Potassium 3.7 mmol/L (3.5-5.1); Sodium 138 mmol/L (135-145); Total Protein 4.9 g/dl (6.3-8.2); eGFR 53.40
[2025-05-17] MEDS: ZOSYN 50 IV ×2 (04:54→09:10)
[2025-05-17] MEDS: CALCIUM GLUCONATE 100 IV (05:51)
[2025-05-17] MEDS: NOVOLOG FLEXPEN-MODERATE RESISTANCE 1 UNITS SC (05:55)
[2025-05-17 06:06] LABS: Glucose - Point of Care 167 mg/dl (70-99)
--- NOTE | 2025-05-17 07:18 | PTCARENOTE ---
Vital signs filed from 05/16 @2330- 05/17 @ 0700 for previous shift.
[2025-05-17] MEDS: HEPARIN 5000 UNITS SC ×2 (07:54→16:02)
[2025-05-17] MEDS: LOW STRENGTH ASPIRIN 81 MG PO (07:54)
--- NOTE | 2025-05-17 08:58 | W.PN.INTV ---
Today's Communication / Plan
Recommendations
- Follow-up blood cultures
- Start p.o. diet now that encephalopathy is significantly improved
- Can be transferred out of ICU
- Ice Bag Assembler service will sign off, please call as needed
Assessment
-
Mr. Hendrickson is a 74-year-old male with a past medical history of dementia, chronic Marcial, CAD, HTN, HLD, NSTEMI, type 2 diabetes living at [facility] who was brought into the ED low BP, altered mentation, and hematuria. At baseline patient is
able to ambulate on his own but is oriented only to self.
#1. Septic shock with suspected UTI
- s/p 30 ml/kg IVF bolus, followed by initiation of pressors, and continued maintenance IVF
- Lactate unremarkable, weaned off Levophed as of 05/17
- Continue broad-spectrum antibiotic. Suspect UTI is related to chronic Marcial catheter with probably recent trauma
- Holding carvedilol
- Patient progressively more awake and alert as hypotension resolved, encephalopathy improving
- Afebrile, WBC count improving
- Prelim blood cultures positive for gram-positive cocci in chains
#2. Hematuria, suspect traumatic
- Marcial catheter has been exchanged, currently clear urine draining, no further hematuria noted
- Tolerating aspirin and subcu heparin well
#3. Acute kidney injury.
- Suspect prerenal, avoid hypotension, continue IV fluids, monitor lab work
- Patient had more than a liter drained after repositioning of a new Marcial catheter, raising possibility of obstructive uropathy as well
- Renal function improving with hydration
#4. Hypoglycemia on presentation
- Holding glipizide, insulin.
- Quite improved
- Resume oral diet
#5. h/o Pulmonary nodules
- 3 to 5 mm nodules noted on imaging in 2020.
- No further workup needed
Patient off Levophed now, normal MAP of 73, saturating 97% on room air. Can be transferred out of ICU
Critical Care time 45 mins -- The patient is admitted for acute critical illness for the treatment of vital organ failure and/or prevention of further life-threatening conditions. Total care includes time spent in review of history, physical exam,
medications, hemodynamic/ventilator parameters, laboratory data, imaging and discussion with house staff, pharmacy, respiratory therapy, tire setter, and nursing.
Subjective Dataa
Subjective Data
Date of Service:
Date of Service: May 17, 2025
Subjective:
Patient comfortably lying in bed in no acute distress.
Review of Systems
Genitourinary: Other (All 14 systems reviewed and negative except as stated above in the history of present illness.)
Objective Data
Data Reviewed
Vital Signs / I&O / Oxygen:
Vital Signs
Temp Pulse Resp BP Pulse Ox
97.9 F 45 15 104/61 95
05/17/25 08:00 05/16/25 23:00 05/16/25 23:00 05/16/25 23:00 05/16/25 23:00
Intake and Output
05/16/25 05/17/25 05/18/25
06:59 06:59 06:59
Intake Total 2730.0 / 2805.0 75 / 75
Output Total 2170 / 2170
Balance 560.0 / 635.0 75 / 75
SaO2 95
Nasal Cannula flow liters per 2
minute
Physical Exam
General: Comfortable
HEENT: Normocephalic
Cardiovascular: S1-S2
Respiratory: Clear
GI: Soft and Non Distended
Neurology: Awake and Alert
Skin: Warm
Labs/Micro/Reports
Lab Data
05/17/25 03:16
05/17/25 03:16
Laboratory Results
05/16/25
15:13
PT 17.4 H
INR 1.41
APTT 32.1
Microbiology
05/16/25 09:12 Blood/Venous Blood Culture - Preliminary
Positive culture in progress
05/16/25 09:12 Blood/Venous Gram Stain - Final
05/16/25 15:13 Nose Nasal Screen MRSA (PCR) - Final
MRSA not detected - performed by PCR methodology.
05/16/25 09:00 Nasal Swab Influenza Types A & B (JOSUE) - Final
Negative for Influenza A & B, NAAT
Negative results must be combined with clinical observations
and patient history.
Nucleic Acid Amplification test (NAAT)performed on the
[employer] platform.
[2025-05-17] MEDS: LR 1000 IV ×2 (09:10→21:38)
[2025-05-17] MEDS: NOVOLOG FLEXPEN-MODERATE RESISTANCE SC ×2 (11:27→22:28)
[2025-05-17 11:28] LABS: Glucose - Point of Care 146 mg/dl (70-99)
--- NOTE | 2025-05-17 11:29 | PTCARENOTE ---
Rec'd pt at 0700, pt alert and awake, oriented to self only. Pt able to state his name, when asked his pt said 'I don't know'. Confused conversation, follows some simple commands but does not always understand directions. Monitor SBR/SR. Lungs
CTA. +BS, abd soft/nt. Marcial draining hector urine. Pt downgraded to tele LOC.
[2025-05-17 12:15] LABS: Glycohemoglobin (HgbA1c) 10.5 % (4.0-5.9)
--- NOTE | 2025-05-17 15:12 | W.PN.HOSP.TC ---
Today's Communication/Plan
-
Switch to ampicillin
Repeat blood cultures
Renal ultrasound
Monitor glucose levels on IV fluids
Resume diet
Downgrade to telemetry
Assessment / Plan
Assessment / Plan
HEENT: Normocephalic and Anicteric
Cardiovascular: S1/S2 and Regular Rhythm
Respiratory: Clear and Non-Labored Respirations
GI: Soft, Non Distended, Flat, Non Tender and Normal Bowel Sounds
Neurology: Awake, Oriented (AAO x 1 at baseline) and No Motor Deficits
General: Fever
#Septic shock
� Secondary to #UTI and #bacteremia
� Weaned off vasopressors 05/17 morning
� Continue antibiotics
�Maintain MAP greater than 65
� IVF
#UTI
#Bacteremia
� Enterococcus faecalis bacteremia
� Follow-up renal ultrasound
� Switch to ampicillin
� Follow-up repeat cultures
#Hematuria
� Suspect traumatic
� Resolved with exchange of catheter
� Continue to monitor
#Acute metabolic encephalopathy
� Improved with antibiotics
� Mostly secondary sepsis
� Continue to monitor
#LILIAN
� Improving with resuscitation
� Continue to monitor
� Follow-up renal ultrasound
#Transaminitis
� Secondary to septic shock likely
� Continue to monitor
� No abdominal pain
#Hypoglycemia
� Received D5 fluids, improved
� Continue diet
� Insulin sliding scale
� Resume home regimen slowly
� Follow-up hemoglobin A1c
#History of pulmonary nodules
� And imaging 2020
� No further workup needed
#DVT prophylaxis
� HSQ
Anticipated Discharge: > 48 hours
Subjective/Interval History
-
Date of Service: May 17, 2025
off pressors since 2am this morning; mental status improved
Objective Data
-
Labs:
Laboratory Results
05/17/25
03:16
WBC 19.7 H
Hgb 9.3 L
Hct 27.6 L
Plt Count 238
Sodium 138
Potassium 3.7
Chloride 108 H
Carbon Dioxide 24
BUN 38 H
Creatinine 1.4 H
Glucose 201 H
Calcium 7.8 L
Total Bilirubin 0.4
AST 234 H
ALT 190 H
Alkaline Phosphatase 188 H
Vital Signs:
Vital Signs
Temp Pulse Resp BP Pulse Ox
98.3 F 59 14 94/62 97
05/17/25 12:45 05/17/25 11:30 05/17/25 11:30 05/17/25 11:00 05/17/25 11:30
I&O
05/16/25 05/17/25 05/18/25
06:59 06:59 06:59
Intake Total 2730.0 / 2805.0 450 / 450
Output Total 2170 / 2170 425 / 425
Balance 560.0 / 635.0
Review of Systems
-
History Source: Patient
All other systems: Not reviewed unless documented
Data Reviewed
-
Diagnostic Radiology: Report Reviewed by me
Labs: Labs Reviewed by me
[2025-05-17] MEDS: NOVOLOG FLEXPEN-MODERATE RESISTANCE 3 UNITS SC (16:02)
[2025-05-17] MEDS: AMPICILLIN 108 MG IV ×2 (16:02→21:39)
[2025-05-17 16:11] LABS: Glucose - Point of Care 210 mg/dl (70-99)
[2025-05-17 22:14] LABS: Glucose - Point of Care 117 mg/dl (70-99)
[2025-05-18] VITALS (9 sets, daily range): BP systolic 114–142; BP diastolic 64–81; BMI 21.0
[2025-05-18] MEDS: HEPARIN 5000 UNITS SC ×4 (00:08→23:10)
[2025-05-18] MEDS: AMPICILLIN 108 MG IV ×4 (04:03→21:15)
[2025-05-18 04:38] LABS: Hematocrit 33.2 % (39.0-52.0); Hemoglobin 11.0 g/dL (13.0-18.0); Mean Corp Hgb Conc. 33.1 g/dL (33.0-37.0); Mean Corpuscular Volume 88.5 fL (80.0-94.0); Platelet Count 237 10^3/uL (130-400); Red Cell Dist. Width 13.3 % (11.5-14.5)
[2025-05-18 05:02] LABS: ALT (SGPT) 125 U/L (0-50); AST (SGOT) 78 U/L (17-59); Albumin 2.5 g/dl (3.5-5.0); Alkaline Phosphatase 160 U/L (38-126); Blood Urea Nitrogen 26 mg/dl (9-20); Calcium 8.4 mg/dl (8.4-10.2); Carbon Dioxide 21 mmol/L (22-30); Chloride 111 mmol/L (98-107); Estimated Creatinine Clearance 54 ml/min; Glucose 119 mg/dl (70-99); Potassium 3.8 mmol/L (3.5-5.1); Sodium 139 mmol/L (135-145); Total Protein 5.1 g/dl (6.3-8.2); eGFR > 60.00
--- NOTE | 2025-05-18 07:35 | PTCARENOTE ---
Pt bed alarm is sounding. He is positioned with his legs over the side rails. He remains disoriented to place, time and events. He is able to tell me his name and that he was born [birth year]. Did not give me the correct year. He is soft spoken and
having disoriented conversation. Television is on and the lights are on in his room. He was reoriented multiple times. He had dislodged his Left arm IV access. 20g protective catheter inserted for LR @ 75ml/hr and ABX therapy. Repositioned in the
bed. Lungs CTA. Weak pedal pulses. +BSX4. Indwelling Marcial catheter intact, old bloody drainage noted at his meatus. Marcial care provided. Stat lock in place. Protective foam intact on his sacrum. Safe environment maintained.
[2025-05-18] MEDS: NOVOLOG FLEXPEN-MODERATE RESISTANCE SC (08:10)
[2025-05-18 08:11] LABS: Glucose - Point of Care 126 mg/dl (70-99)
[2025-05-18] MEDS: LOW STRENGTH ASPIRIN 81 MG PO (08:57)
--- NOTE | 2025-05-18 11:30 | PTCARENOTE ---
Pt significant other is at the bedside. Tearful and verbalizing her frustration with his decline. Supportive care provided. Pt remains confused but more restful with her at the bedside. Safe environment maintained.
[2025-05-18] MEDS: NOVOLOG FLEXPEN-MODERATE RESISTANCE 1 UNITS SC (12:38)
[2025-05-18 12:39] LABS: Glucose - Point of Care 194 mg/dl (70-99)
[2025-05-18] MEDS: LR 1000 IV (12:45)
--- NOTE | 2025-05-18 14:03 | W.PN.HOSP.TC ---
Today's Communication/Plan
-
Continue antibiotics
Follow-up repeat cultures
Follow-up renal ultrasound, echocardiogram
ID consult tomorrow
Assessment / Plan
Assessment / Plan
HEENT: Normocephalic and Anicteric
Cardiovascular: S1/S2 and Regular Rhythm
Respiratory: Clear and Non-Labored Respirations
GI: Soft, Non Distended, Flat, Non Tender and Normal Bowel Sounds
Neurology: Awake, Oriented (AAO x 1 at baseline) and No Motor Deficits
General: Fever
#Septic shock
� Secondary to #UTI and #bacteremia
� Weaned off vasopressors 05/17 morning
� Continue antibiotics
�Maintain MAP greater than 65
� IVF
#UTI
#Bacteremia
� Enterococcus faecalis bacteremia
� Obtain echocardiogram
� Follow-up renal ultrasound
� Switch to ampicillin
� Follow-up repeat cultures
#Hematuria
� Suspect traumatic
� Resolved with exchange of catheter
� Continue to monitor
#Acute metabolic encephalopathy
� Improved with antibiotics
� Mostly secondary sepsis
� Continue to monitor
#LILIAN
� Improving with resuscitation
� Continue to monitor
� Follow-up renal ultrasound
#Transaminitis
� Secondary to septic shock likely
� Continue to monitor
� No abdominal pain
#Hypoglycemia
� Received D5 fluids, improved
� Continue diet
� Insulin sliding scale
� Resume home regimen slowly
� Follow-up hemoglobin A1c
#History of pulmonary nodules
� And imaging 2020
� No further workup needed
#DVT prophylaxis
� HSQ
Anticipated Discharge: 24 - 48 hours
Subjective/Interval History
-
Date of Service: May 18, 2025
No acute events overnight
Objective Data
-
Labs:
Laboratory Results
05/18/25
04:10
WBC 17.5 H
Hgb 11.0 L
Hct 33.2 L
Plt Count 237
Sodium 139
Potassium 3.8
Chloride 111 H
Carbon Dioxide 21 L
BUN 26 H
Creatinine 1.1
Glucose 119 H
Calcium 8.4
Total Bilirubin 0.6
AST 78 H
ALT 125 H
Alkaline Phosphatase 160 H
Vital Signs:
Vital Signs
Temp Pulse Resp BP Pulse Ox
98 F 90 14 119/75 95
05/18/25 07:35 05/18/25 13:00 05/18/25 13:00 05/18/25 10:48 05/17/25 21:00
I&O
05/17/25 05/18/25 05/19/25
06:59 06:59 06:59
Intake Total 2730.0 / 2805.0 2330 / 2405 1113 / 1113
Output Total 2170 / 2170 1225 / 1225 450 / 450
Balance 560.0 / 635.0 1105 / 1180 663 / 663
Review of Systems
-
History Source: Patient
All other systems: Not reviewed unless documented
Data Reviewed
-
Diagnostic Radiology: Report Reviewed by me
Labs: Labs Reviewed by me
--- NOTE | 2025-05-18 16:21 | PTCARENOTE ---
Remains disoriented. Pleasant however very short term memory. Repositioned many times d/t climbing out of bed. He has confused conversations. Right FA w/LR as ordered. Pt removed stat lock, replaced. Safe environment maintained. Will continue to
monitor.
--- NOTE | 2025-05-18 16:49 | TRANSFER ---
Report called to 4th floor. pt to be transferred via w/c.
[2025-05-18 16:56] LABS: Glucose - Point of Care 253 mg/dl (70-99)
[2025-05-18] MEDS: NOVOLOG FLEXPEN-MODERATE RESISTANCE 5 UNITS SC ×2 (16:56→21:00)
[2025-05-18 20:20] LABS: Glucose - Point of Care 276 mg/dl (70-99)
[2025-05-19] MEDS: LR 1000 IV ×2 (02:16→20:26)
[2025-05-19] MEDS: AMPICILLIN 108 MG IV ×2 (04:47→09:25)
[2025-05-19] MEDS: ATARAX PO ×2 (04:47→04:57)
[2025-05-19] MEDS: TYLENOL 650 MG PO (05:14)
[2025-05-19] MEDS: ATARAX 25 MG PO ×2 (05:15→16:21)
[2025-05-19 07:00] VITALS: BP 120/63
[2025-05-19 08:45] LABS: Glucose - Point of Care 280 mg/dl (70-99)
[2025-05-19] MEDS: NOVOLOG FLEXPEN-MODERATE RESISTANCE 5 UNITS SC (08:46)
[2025-05-19] MEDS: HEPARIN 5000 UNITS SC ×2 (08:47→15:20)
[2025-05-19] MEDS: LOW STRENGTH ASPIRIN 81 MG PO (08:48)
[2025-05-19 08:57] LABS: Hematocrit 30.2 % (39.0-52.0); Hemoglobin 9.9 g/dL (13.0-18.0); Mean Corp Hgb Conc. 32.8 g/dL (33.0-37.0); Mean Corpuscular Volume 88.6 fL (80.0-94.0); Platelet Count 212 10^3/uL (130-400); Red Cell Dist. Width 13.2 % (11.5-14.5)
[2025-05-19 09:45] LABS: ALT (SGPT) 74 U/L (0-50); AST (SGOT) 30 U/L (17-59); Albumin 2.4 g/dl (3.5-5.0); Alkaline Phosphatase 115 U/L (38-126); Blood Urea Nitrogen 20 mg/dl (9-20); Calcium 8.0 mg/dl (8.4-10.2); Carbon Dioxide 25 mmol/L (22-30); Chloride 107 mmol/L (98-107); Estimated Creatinine Clearance 61 ml/min; Glucose 244 mg/dl (70-99); Potassium 4.0 mmol/L (3.5-5.1); Sodium 137 mmol/L (135-145); Total Protein 4.8 g/dl (6.3-8.2); eGFR > 60.00
[2025-05-19 12:13] LABS: Glucose - Point of Care 325 mg/dl (70-99)
[2025-05-19] MEDS: NOVOLOG FLEXPEN-MODERATE RESISTANCE 7 UNITS SC (13:29)
--- NOTE | 2025-05-19 14:21 | CON.ID ---
Consultation
-
Date/Time Consultation Requested: 05/19/25 13:51
Date/Time Consultation Performed: 05/19/25 14:21
Requesting Provider: Dr Luciano
Performing Provider: Dr Weir
Reason for Consultation: UTI with bacteremia
Chief Complaint / Past History
Chief Complaint
hematuria and hypotension
History of Present Illness
Mr Hendrickson is a 74 year old male with history of single kidney (L nephrectomy) BPH, Dm2, dementia who presented from [facility] for hypotension and hematuria that began the morning of arrival. He has a chronic moore. He was unable to get out of
bed which is a change from his baseline. History obtained from chart review.
On arrival he was febrile to tmax of 103.3, bp initially hypotensive and requiring norepi to a max of 10 mcg/min over the first 24 hours now stable off of pressors, initial wbc 24.3 now 9.5, hgb 9.9, plt 212, initially with L shift and not
repeated, initial Cr 2.1 now 1.0 as his baseline, na 137, a1c 10.5, lactic acid 1.5, t bili 0.4 peak ast 234, alt 190, alk phos 188 - lfts now normalizing, UA >100 RBC/WBC, covid ag negative, renal US: L nephrectomy, no right pelvicalyceal
dilation, CXR: no acute CP process, 05/16 one of two sets of blood cultures E faecalis, urine culture 100K e faecalis, Moore exchanged and ~1L of urine returned - initially with hematuria, then cloudy, then clear urine. Patient is currently on
ampicillin 2 gm IV q6 hr, ID is consulted for assistance with management. Patient remains confused unable to provide additional history
Past History
Additional Past Medical History:
hypertension
hyperlipidemia
CAD
GERD
BPH
HFrEF
type 2 diabetes
dementia
Additional Past Surgical History:
(2008) mod CAD, 2 overlapping LAD Stents
Aileen
b/l Vein Stripping
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
Colon Polyp removed, negative per pt.
L Inguinal Hernia Repair
(11/28/19) Percutaneous R TF TAVR /w 26 mm Odell Karla 3 (JBM/DB)
Allergy History:
atorvastatin (From Lipitor) Allergy (Verified 04/19/25 02:17)
Unknown
bee venom protein (honey bee) Allergy (Verified 04/19/25 02:17)
Unknown
Medications Reviewed: Yes
Social History
Tobacco: Other (unable to obtain additional history due to the condition of the patient)
Personal:
Living: Senior Living
Family History
Family History: Not Pertinent
Review of Systems
Review of Systems
unable to obtain due to the condition of the patient
Vital Signs
Temp Pulse Resp BP Pulse Ox
97.9 F 57 18 120/63 98
05/19/25 07:00 05/19/25 07:00 05/19/25 07:00 05/19/25 07:00 05/19/25 07:00
Physical Exam
Physical Exam
Constitutional: No Acute Distress and Chronically Ill
Cardiovascular: Regular Rate and S1/S2; Negative Murmur or Rub
Pulmonary: Clear and Symmetric; Negative Wheezes, Rales or Rhonchi
Gastrointestinal: Soft, Non Tender, Non Distended and Normal Bowel Sounds
Genito-Urinary: Clear Urine; Negative Suprapubic Tenderness or CVA Tenderness
Skin: Warm and Dry; Negative Rash or Jaundice
Lab / Diagnostic Study Results
05/19/25 08:32
05/19/25 08:32
Total Counted 100 05/16/25 09:00
Abs Neuts (Manual) 23.0 10^3/uL (1.4-6.5) H 05/16/25 09:00
Segmented Neutrophils 84 % (42-75) H 05/16/25 09:00
Band Neutrophils 11 % (0-3) H 05/16/25 09:00
Lymphocytes (Manual) 2 % (20-51) L 05/16/25 09:00
PT 17.4 Sec (11.4-14.6) H 05/16/25 15:13
INR 1.41 05/16/25 15:13
Lactic Acid Cancelled 05/16/25 22:25
Ur Squamous Epith Cells 11-15 /LPF (Few) 05/16/25 09:54
hgba1c 10.5
Microbiology Results
Micro:
05/16/25 09:12 Blood Culture - Final
Blood/Venous Enterococcus faecalis
Gram Stain - Final
05/17/25 09:05 Blood Culture - Preliminary
Blood/Venous No Growth in 48 hours- Final report to follow
05/16/25 09:00 Blood Culture - Preliminary
Blood/Venous No Growth in 72 hours- Final report to follow
05/16/25 09:54 Urine Culture - Final
Urine Enterococcus faecalis
05/16/25 15:13 Nasal Screen MRSA (PCR) - Final
Nose MRSA not detected - performed by PCR methodology.
05/16/25 09:00 Influenza Types A & B (JOSUE) - Final
Nasal Swab Negative for Influenza A & B, NAAT
Negative results must be combined with clinical observations
and patient history.
Nucleic Acid Amplification test (NAAT)performed on the
[employer] platform.
Urine Culture Final 05/18/25-1158
CC: Greater than 100,000 CFU/ML Enterococcus faecalis
Organism 1 Enterococcus faecalis
1. Enterococcus faecalis
M.I.C. RX
--------- ---
Ampicillin <=2 S
Gentamicin Synergy Screen <=500 S
Susceptible result indicates synergy is likely with a cell
wall active agent that is also susceptible
(e.g.ampicillin,penicillin,vancomycin)
Levofloxacin 2 S
Nitrofurantoin-Urine Only <=32 S
Tetracycline <=4 S
Vancomycin 2 S
05/16 EKG QTcB 385
Assessment / Plan
E faecalis bacteremia secondary to UTI
E faecalis UTI
Single kidney
Dm2 - uncontrolled
LILIAN - resolved
- single repeat blood culture no growth to date, send a second set
- e faecalis amp sensitive, QTcb 385
- a1c 10.5
- await echo
- start levofloxacin 750 mg PO qday x 14 day total course 05/16-05/29
- given uncontrolled a1c not concerned about continuing glipizide with quinolone; also with baseline QTc so low no need to hold QTc prolonging agents
- moore exchanged in the ER
- follow up with PCP
--- NOTE | 2025-05-19 14:21 | W.PN.HOSP.TC ---
Today's Communication/Plan
-
ID consult
Assessment / Plan
Assessment / Plan
74yo M with progressive dmentia, had deterioration of his cognitive functions for past 7 years, accelerated since past month, BPH with urinary retntion on Marcial came with forsening confusion, managed for CAUTI and bacteremai with Enterococcus
faecalis
A/P:
#Septic shock (resolved) CAUTI
weaned off pressors
Ucx and Bcx - penicillin sensitive Enterococcus faecalis - Ampicillin IV pending ID consult
#Hx of renal CA s/p L nephrectomy
Repeated Bcx x1 NTD
US renal: no hydronephrosis of R kidney
Marcial replaced in ED
Echo
#Acute metabolic encephalopathy
2/2 UTI
resolving
#Chronic urinary retention
#BPH
#LILIAN on admission (resolved)
cont Marcial
scheduled for resection of prostate on 06/05/25
#DM type 2 with neuropathy
Accuchecks, Insulin SS, DM diet
COnt basal/bolus
#Transaminitis 2/2 ischemic hepatitis
improving
#HLD
#EssentiaL HTN
#Dementia, unspecified
#ASCVD
#DJD
Resident of memory care unit
cont home meds
DVT ppx hep
Full code
I have spent at least 59min reviewing chart, teast results, communication with consultants and providing direct patient care
Anticipated Discharge: 24 - 48 hours
Subjective/Interval History
-
Date of Service: May 19, 2025
Objective Data
-
Labs:
Laboratory Results
05/19/25
08:32
WBC 9.5
Hgb 9.9 L
Hct 30.2 L
Plt Count 212
Sodium 137
Potassium 4.0
Chloride 107
Carbon Dioxide 25
BUN 20
Creatinine 1.0
Glucose 244 H
Calcium 8.0 L
Total Bilirubin 0.5
AST 30
ALT 74 H
Alkaline Phosphatase 115
Vital Signs:
Vital Signs
Temp Pulse Resp BP Pulse Ox
97.9 F 57 18 120/63 98
05/19/25 07:00 05/19/25 07:00 05/19/25 07:00 05/19/25 07:00 05/19/25 07:00
I&O
05/18/25 05/19/25 05/20/25
06:59 06:59 06:59
Intake Total 2330 / 2405 1938 / 1938
Output Total 1225 / 1225 1325 / 1325
Balance 1105 / 1180 613 / 613
Review of Systems
-
Unable to obtain full review of systems at this time due to: Dementia
History Source: Patient
Physical Exam
-
General: No Apparent Distress
HEENT: Normocephalic
Respiratory: Clear to Auscultation
Cardiac: Regular Rhythm
Genito-urinary: Clear Urine and Marcial
Musculoskeletal: No Clubbing, No Cyanosis and No Edema
Neuro: Awake, Alert and Oriented
Psych: Apparent Dementia
[2025-05-19 15:00] VITALS: BP 125/68
[2025-05-19] MEDS: LEVAQUIN 750 MG PO (15:23)
[2025-05-19 16:24] LABS: Glucose - Point of Care 161 mg/dl (70-99)
[2025-05-19] MEDS: NOVOLOG FLEXPEN-MODERATE RESISTANCE 1 UNITS SC (17:19)
[2025-05-19] MEDS: BUSPAR 10 MG PO (21:37)
[2025-05-19] MEDS: ARICEPT 5 MG PO (21:37)
[2025-05-19] MEDS: MELATONIN 3 MG PO (21:38)
[2025-05-19 21:51] LABS: Glucose - Point of Care 236 mg/dl (70-99)
[2025-05-19] MEDS: NOVOLOG FLEXPEN-MODERATE RESISTANCE 3 UNITS SC (21:55)
[2025-05-19] MEDS: LANTUS 0.1 UNITS SC (21:55)
[2025-05-19 23:39] VITALS: BP 113/59
[2025-05-20] MEDS: HEPARIN 5000 UNITS SC ×2 (00:18→08:01)
[2025-05-20] MEDS: LR 1000 IV (04:26)
[2025-05-20] MEDS: BUSPAR 10 MG PO (08:00)
[2025-05-20] MEDS: LEVAQUIN 750 MG PO (08:00)
[2025-05-20 08:01] LABS: Glucose - Point of Care 127 mg/dl (70-99)
[2025-05-20] MEDS: LOW STRENGTH ASPIRIN 81 MG PO (08:01)
[2025-05-20 08:08] VITALS: BP 136/75
[2025-05-20 08:43] LABS: Hematocrit 32.1 % (39.0-52.0); Hemoglobin 10.3 g/dL (13.0-18.0); Mean Corp Hgb Conc. 32.1 g/dL (33.0-37.0); Mean Corpuscular Volume 88.7 fL (80.0-94.0); Nucleated Red Blood Cells % 0 % (-); Platelet Count 215 10^3/uL (130-400); Red Cell Dist. Width 13.3 % (11.5-14.5)
[2025-05-20] MEDS: NOVOLOG FLEXPEN-MODERATE RESISTANCE SC (08:57)
[2025-05-20 09:15] LABS: ALT (SGPT) 70 U/L (0-50); AST (SGOT) 43 U/L (17-59); Albumin 2.5 g/dl (3.5-5.0); Alkaline Phosphatase 103 U/L (38-126); Blood Urea Nitrogen 13 mg/dl (9-20); Calcium 7.8 mg/dl (8.4-10.2); Carbon Dioxide 28 mmol/L (22-30); Chloride 106 mmol/L (98-107); Estimated Creatinine Clearance 61 ml/min; Glucose 118 mg/dl (70-99); Potassium 3.5 mmol/L (3.5-5.1); Sodium 136 mmol/L (135-145); Total Protein 4.9 g/dl (6.3-8.2); eGFR > 60.00
--- NOTE | 2025-05-20 10:19 | W.PN.HOSP.TC ---
Today's Communication/Plan
-
PT assessment and DC
Assessment / Plan
Assessment / Plan
74yo M with progressive dmentia, had deterioration of his cognitive functions for past 7 years, accelerated since past month, BPH with urinary retntion on Marcial came with forsening confusion, managed for CAUTI and bacteremai with Enterococcus
faecalis
A/P:
#Septic shock (resolved) CAUTI
weaned off pressors
Ucx and Bcx - penicillin sensitive Enterococcus faecalis - Ampicillin IV swited to Levaquin for total 14 days as per ID consult: last day 05/29/25
#Hx of renal CA s/p L nephrectomy
Repeated Bcx x1 NTD
US renal: no hydronephrosis of R kidney
Marcial replaced in ED
Echo: EF 65-70%, well seated TAVR with normal gradient.
#Acute metabolic encephalopathy
2/2 UTI
resolving
#Chronic urinary retention
#BPH
#LILIAN on admission (resolved)
cont Marcial
scheduled for resection of prostate on 06/05/25
#DM type 2 with neuropathy
Accuchecks, Insulin SS, DM diet
COnt basal/bolus
#Transaminitis 2/2 ischemic hepatitis
improving
#HLD
#Essential HTN
#Dementia, unspecified
#ASCVD
#DJD
Resident of memory care unit
cont home meds
DVT ppx hep
Full code
I have spent at least 51min reviewing chart, teast results, communication with consultants and providing direct patient care
Anticipated Discharge: Within 24 hours
Subjective/Interval History
-
Date of Service: May 20, 2025
Objective Data
-
Labs:
Laboratory Results
05/20/25
08:21
WBC 7.9
Hgb 10.3 L
Hct 32.1 L
Plt Count 215
Sodium 136
Potassium 3.5
Chloride 106
Carbon Dioxide 28
BUN 13
Creatinine 1.0
Glucose 118 H
Calcium 7.8 L
Total Bilirubin 0.3
AST 43
ALT 70 H
Alkaline Phosphatase 103
Vital Signs:
Vital Signs
Temp Pulse Resp BP Pulse Ox
99.0 F 68 16 136/75 98
05/20/25 08:08 05/20/25 08:08 05/20/25 08:08 05/20/25 08:08 05/20/25 08:08
I&O
05/19/25 05/20/25 05/21/25
06:59 06:59 06:59
Intake Total 1938 / 1938 1200 / 1200
Output Total 1325 / 1325 1400 / 1400
Balance 613 / 613 -200 / -200
Review of Systems
-
Unable to obtain full review of systems at this time due to: Dementia
History Source: Patient
Physical Exam
-
General: No Apparent Distress
HEENT: Normocephalic
Respiratory: Clear to Auscultation
Cardiac: Regular Rhythm
GI: Soft, Nontender and Nondistended
Genito-urinary: Clear Urine and Marcial
Musculoskeletal: No Clubbing, No Cyanosis and No Edema
Neuro: Awake and Alert
Psych: Apparent Dementia
--- NOTE | 2025-05-20 10:42 | CM ---
Addendum entered by Clarence Salvador 05/20/25 13:02:
Spouse bedside, stated she will transport patient
Addendum entered by Clarence Salvador 05/20/25 12:26:
Therapy assessed, patient supervision level, ambulated 90 feet x 2, recommending patient to return to [facility]
Left 2 messages w/ assistant UCHE Escobar to update
Hospitalist moving forward w/ discharge
Patient will need ambulance transport
IMM verbally reviewed w/ son copy on chart
[facility]- Memory care
Report: [phone] (Luz/Assistant IVEY)

Plan: Return to [facility] today
Original Note:
Chart reviewed. Per hospitalist, will plan to discharge patient after PT assessment
CM called [facility], spoke w/ Milena, wellness nurse, who confirmed patient is usually independent w/ ambulation at baseline. If patient is requiring 1 or 2 person assist, patient will need to go to SNF but assistance transportation program director, Luz,
will make that decision once PT sees him.
In the meantime, CM faxed clinicals to [phone]
Plan: Await PT assessment
[2025-05-20 11:48] VITALS: BP 118/70; PULSE 60; O2SAT 98
[2025-05-20 12:24] LABS: Glucose - Point of Care 290 mg/dl (70-99)
--- NOTE | 2025-05-20 12:28 | W.DCSUMMARY ---
Discharge Summary
Discharge Data
Date of Admission: 05/16/25
Date of Discharge: 05/20/25
-
Pending Results: No
Hospital Course
74yo M with progressive dementia, had deterioration of his cognitive functions for past 7 years, accelerated since past month, BPH with urinary retention on Hussein came with worsening confusion, managed for CAUTI and bacteremai with Enterococcus
faecalis. ID recommended switching to Levaquin as QTc not prolonged to continue treatment till 05/29/24. Since patient arrived with hypoglycemia - Home insulin basal/bolus was decreased by 50%. PT/OT recommended d/c back to memory care. As per -
rogelio scheduled for prostate surgery on 06/05/24 - advised to keep appointment. Medically stable for d/c.
I have spent at least 51min reviewing chart, test results, communication with consultants and providing direct patient care
Patient was managed for:
#Septic shock (resolved) CAUTI
#Hx of renal CA s/p L nephrectomy
#Acute metabolic encephalopathy
#Chronic urinary retention
#BPH
#LILIAN on admission (resolved)
#DM type 2 with neuropathy
#Transaminitis 2/2 ischemic hepatitis
#HLD
#Essential HTN
#Dementia, unspecified
#ASCVD
#DJD
Discharge Plan
-
Patient Disposition: Other
Discharge Diagnosis/Procedures: memory care unit
Diet: Diabetic, Carb Controlled
Referrals:
Rocío Terrell, [Family Provider, General]
Additional Discharge Medication Instructions: Continue Levaquin through 05/29/24
Prescriptions:
New
levofloxacin 750 mg Tablet
750 mg PO DAILY Qty: 9 0RF
Continued
carvedilol 6.25 MG tablet
6.25 mg PO BID
aspirin 81 MG tablet,chewable
81 mg PO DAILY Qty: 1 0RF
coenzyme Q10 [Co Q-10] 200 MG capsule
200 mg PO DAILY
donepezil 5 mg Tablet
5 mg PO HS
melatonin 3 mg Tablet
3 mg PO HS
tamsulosin 0.4 mg Capsule
0.4 mg PO QPM
buspirone 10 mg Tablet
10 mg PO BID
hydroxyzine HCl 25 mg Tablet
25 mg PO Q6H PRN (Reason: anxiety)
pravastatin 20 mg Tablet
20 mg PO HS
finasteride 5 mg Tablet
5 mg PO DAILY
alum-mag hydroxide-simeth 400-400-40 mg/5 mL Suspension
30 ml PO Q6H PRN (Reason: indigestion)
acetaminophen 325 MG tablet
650 mg PO Q6HPRN MDD 3000 mg PRN (Reason: pain/fever/headache)
therapeutic multivitamin Tablet
1 tab PO DAILY
Changed
insulin lispro [Humalog KwikPen Insulin] 100 unit/mL Insulin Pen
3 unit SC AC Qty: 0 0RF
insulin glargine [Lantus Solostar U-100 Insulin] 100 unit/mL (3 mL) Insulin Pen
10 unit SC HS Qty: 0 0RF
Held
glipizide 5 mg Tablet
5 mg PO DAILY@0730
Hold Instructions: Until completed Levaquin
Discharge Orders:
Discharge Patient (As Directed); Ordered 05/20/25
Ordered By: Errol Luciano
Discharge Date and Time
Print Language: GEORGIAN
--- NOTE | 2025-05-20 12:28 | W.PN.ID1 ---
Date of Service
Date of Service: May 20, 2025
Today's Communication
c/w levofloxacin 750 mg PO qday x 14 day total course 05/16-05/29
Assessment / Plan
E faecalis bacteremia secondary to UTI
E faecalis UTI
Single kidney
TAVR
Dm2 - uncontrolled
LILIAN - resolved
- blood cultures x2 in progress
- e faecalis amp sensitive, QTcb 385
- a1c 10.5
- TTE no vegetations
- c/w levofloxacin 750 mg PO qday x 14 day total course 05/16-05/29
- given uncontrolled a1c not concerned about continuing glipizide with quinolone; also with baseline QTc so low no need to hold QTc prolonging agents
- moore exchanged in the ER
- follow up with PCP
Chief Complaint
-: UTI and Bacteremia
Subjective / Review of Systems
afebrile
bp stable
no events overnight
Vital Signs / Physical Exam
Vital Signs
Vital Signs
Temp Pulse Resp BP Pulse Ox
99.0 F 68 16 136/75 98
05/20/25 08:08 05/20/25 08:08 05/20/25 08:08 05/20/25 08:08 05/20/25 08:08
Physical Exam
Constitutional: No Acute Distress
Cardiovascular: Regular Rate and S1/S2; Negative Murmur or Rub
Pulmonary: Clear and Symmetric; Negative Wheezes or Rales
Gastrointestinal: Soft, Non Tender, Non Distended and Normal Bowel Sounds
Skin: Warm and Dry; Negative Rash or Jaundice
Objective Data
Lab Data
Lab Results
05/20/25 08:21
05/20/25 08:21
PT 17.4 Sec (11.4-14.6) H 05/16/25 15:13
INR 1.41 05/16/25 15:13
APTT 32.1 Sec (23.4-35.0) 05/16/25 15:13
Estimated Creat Clear 61 ml/min 05/20/25 08:21
Lactic Acid Cancelled 05/16/25 22:25
Total Bilirubin 0.3 mg/dl (0.2-1.3) 05/20/25 08:21
AST 43 U/L (17-59) 05/20/25 08:21
ALT 70 U/L (0-50) H 05/20/25 08:21
Alkaline Phosphatase 103 U/L (38-126) 05/20/25 08:21
Most recent labs reviewed.
Micro Results:
05/17/25 09:05 Blood Culture - Preliminary
Blood/Venous No Growth in 72 hours- Final report to follow
05/16/25 09:00 Blood Culture - Preliminary
Blood/Venous No Growth in 4 days- Final report to follow
05/19/25 17:41 Blood Culture - Pending
Blood/Venous
05/16/25 09:12 Blood Culture - Final
Blood/Venous Enterococcus faecalis
Gram Stain - Final
05/16/25 09:54 Urine Culture - Final
Urine Enterococcus faecalis
05/16/25 15:13 Nasal Screen MRSA (PCR) - Final
Nose MRSA not detected - performed by PCR methodology.
05/16/25 09:00 Influenza Types A & B (JOSUE) - Final
Nasal Swab Negative for Influenza A & B, NAAT
Negative results must be combined with clinical observations
and patient history.
Nucleic Acid Amplification test (NAAT)performed on the
[employer] platform.
Urine Culture Final 05/18/25-1158
CC: Greater than 100,000 CFU/ML Enterococcus faecalis
Organism 1 Enterococcus faecalis
1. Enterococcus faecalis
M.I.C. RX
--------- ---
Ampicillin <=2 S
Gentamicin Synergy Screen <=500 S
Susceptible result indicates synergy is likely with a cell
wall active agent that is also susceptible
(e.g.ampicillin,penicillin,vancomycin)
Levofloxacin 2 S
Nitrofurantoin-Urine Only <=32 S
Tetracycline <=4 S
Vancomycin 2 S
05/16 EKG QTcB 385
[2025-05-20] MEDS: NOVOLOG FLEXPEN-MODERATE RESISTANCE 5 UNITS SC (12:49)
[2025-05-20] MEDS: FLUZONE HIGH-DOSE 2025-26 0.5 ML IM (13:06)
== END 2025-05-20 14:46 | disposition home or self-care (01) | DRG 698 ==
LOC: 4 WEST ACU 12:23
PROVIDERS: Nurse Practitioner; ADMITTING PHYSICIAN Internal Medicine; ATTENDING PHYSICIAN Internal Medicine; CONSULT PHYSICIAN Internal Medicine; EMERGENCY PHYSICIAN Emergency Medicine; FAMILY PHYSICIAN Hospitalist; OTHER PHYSICIAN Student in an Organized Health Care Education/Training Program
DX: T83.518A Infection and inflammatory reaction due to other urinary catheter, initial encounter (principal); A41.81 Sepsis due to Enterococcus; R65.21 Severe sepsis with septic shock; G93.41 Metabolic encephalopathy; K72.00 Acute and subacute hepatic failure without coma; N39.0 Urinary tract infection, site not specified; N17.9 Acute kidney failure, unspecified; I50.22 Chronic systolic (congestive) heart failure; F03.94 Unspecified dementia, unspecified severity, with anxiety; Y84.6 Urinary catheterization as the cause of abnormal reaction of the patient, or of later complication, without mention of misadventure at the time of the procedure; Z85.528 Personal history of other malignant neoplasm of kidney; Z90.5 Acquired absence of kidney; N40.1 Benign prostatic hyperplasia with lower urinary tract symptoms; E11.40 Type 2 diabetes mellitus with diabetic neuropathy, unspecified; I11.0 Hypertensive heart disease with heart failure; I25.10 Atherosclerotic heart disease of native coronary artery without angina pectoris; M19.90 Unspecified osteoarthritis, unspecified site; Z79.899 Other long term (current) drug therapy; Z79.82 Long term (current) use of aspirin; Z79.4 Long term (current) use of insulin; Z79.84 Long term (current) use of oral hypoglycemic drugs; K21.9 Gastro-esophageal reflux disease without esophagitis; E78.00 Pure hypercholesterolemia, unspecified; I25.2 Old myocardial infarction; Z95.2 Presence of prosthetic heart valve; Z95.5 Presence of coronary angioplasty implant and graft; I44.0 Atrioventricular block, first degree
CPT/HCPCS: 51702; 71045; 76770; 80053; 81003; 81015; 82962; 83036; 83605; 83735; 84100; 85025; 85027; 85610; 85730; 87040; 87077; 87086; 87154; 87186; 87205; 87502; 87641; 87811; 90662; 93005; 93306; 96361; 96365; 96366; 96367; 97116; 97162; 99291; G0008